=== PATIENT | male | born 1960 | race Caucasian/White ===

== ENCOUNTER 2021-01-08 16:20 | Emergency (ER) | payer MEDICARE, SELFPAY | END 2021-01-08 16:21 | disposition left against medical advice (07) | PROVIDERS: Emergency Provider Emergency Medicine; PCP Internal Medicine | DX: Z53.8 Procedure and treatment not carried out for other reasons (principal) | CPT/HCPCS: 99199 ==

== ENCOUNTER 2021-01-29 13:26 | Outpatient (CLI) | payer MEDICARE, SELFPAY ==
[2021-01-29 15:35] LABS: SARS-CoV-2 RNA PCR Positive (Negative)
== END 2021-01-29 13:27 | disposition home or self-care (01) ==
LOC: CHSLAB 13:29
PROVIDERS: PCP Internal Medicine; Visit Provider Internal Medicine
DX: U07.1 COVID-19 (principal)
CPT/HCPCS: C9803; U0003; U0005

== ENCOUNTER 2022-02-25 09:04 | Outpatient (CLI) | payer MEDICARE, SELFPAY ==
--- NOTE | ~2022-02-25 | US_ITS ---
EXAMINATION: US right upper quadrant DATE: 02/25/2022 09:31 INDICATION: Elevated liver function tests TECHNIQUE: Multiple grayscale and Doppler ultrasound images of the abdomen were obtained. COMPARISON: None FINDINGS: The region of the pancreas is obscured by shadowing bowel gas. Liver has normal echogenicity and cont our, with a smooth surface. No liver lesion identified. No intrahepatic biliary duct dilation suspect ed. Portal venous flow was seen in the hepatopetal, normal direction and has normal Doppler waveform. The gallbladder is normal in appearance. There is no cholelithiasis. The common bile duct measures 3 mm, which is normal. Sonographic Meek sign was reported as negative by the pet adoption counselor. Visualize d portion of the superior vena cava is normal. IMPRESSION: 1. Normal right upper quadrant ultrasound. Reviewed, dictated and finalized at location B.
== END 2022-02-25 09:05 | disposition home or self-care (01) ==
LOC: CHSIMG 09:05
PROVIDERS: PCP Internal Medicine; Visit Provider Internal Medicine
DX: R94.5 Abnormal results of liver function studies (principal)
CPT/HCPCS: 76705

== ENCOUNTER 2024-06-14 15:14 | Outpatient (CLI) | payer MEDICARE, SELFPAY ==
--- NOTE | 2024-06-14 15:26 | ECHO_ITS ---
Patient Info Name: Jules Salinas Age: 64 years : 1960 Gender: Male Ht: 66 in Wt: 185 lbs BSA: 2.00 m2 HR: 71 bpm BP: 143 / 62 mmHg Technical Quality: Good Exam Date: 06/14/2024 3:49 PM Exam Location: Echo Lab Patient Status: Outpatient Admit Date: 06/14/2024 Staff Ordering Physician: Maximino Baez MD Assembler For Puller Over Hand: Jess Santos RDCS Attending Provider: Maximino Baez MD Exam Type: CA echo doppler color flow Summary 1. Left ventricular chamber dimension is normal. 2. Left ventricular systolic function is normal, estimated at 60-65%. 3. The left ventricular diastolic function is grade I diastolic dysfunction. 4. E/e' 9 is minimally elevated. 5. Left atrial chamber dimension is moderately enlarged. 6. There is mild aortic valve sclerosis. 7. There is trace aortic valve regurgitation. 8. There is mild mitral valve regurgitation. 9. There is trace tricuspid valve regurgitation. 10. No pulmonary hypertension, estimated pulmonary arterial systolic pressure is 21 mmHg. 11. There is trace pulmonic regurgitation. Left Ventricle E/e' 9 is minimally elevated. Left ventricular chamber dimension is normal. Left ventricular systolic function is normal, estimated at 60-65%. The left ventricular diastolic function is grade I diastolic dysfunction. Right Ventricle Right ventricular systolic function is normal and with normal TAPSE 2.3 cm. Right ventricular chamber dimension is normal. Left Atria Left atrial chamber dimension is moderately enlarged. Right Atria Right atrial chamber dimension is normal. Aortic Valve The aortic valve is trileaflet. There is mild aortic valve sclerosis. There is no aortic valve stenosis. There is trace aortic valve regurgitation. Pulmonic Valve There is trace pulmonic regurgitation. Mitral Valve There is no mitral valve stenosis. There is mild mitral valve regurgitation. Tricuspid Valve There is trace tricuspid valve regurgitation. No pulmonary hypertension, estimated pulmonary arterial systolic pressure is 21 mmHg. Pericardium/Pleural There is no pericardial effusion. Inferior Vena Cava Normal inferior vena cava with >50% collapse upon inspiration consistent with normal right atrial pressure, 5 mmHg. Aorta The aortic root size at the sinus of Valsalva is normal. Left Ventricular Outflow Tract Name Value Normal LVOT 2D LVOT Diameter 2.2 cm LVOT Doppler LVOT Peak Velocity 95 cm/s LVOT Peak Gradient 4 mmHg LVOT Mean Gradient 2 mmHg LVOT VTI 21 cm LVOT VTI/AV VTI Ratio 0.7 LVOT Stroke Volume 80 ml Pulmonic Valve Name Value Normal PV Doppler PV Peak Velocity 93 cm/s PV Peak Gradient 3 mmHg PV Regurgitation Doppler TN Peak End Diastolic Velocity 118 cm/s Mitral Valve Name Value Normal MV Doppler MV Peak Gradient 4 mmHg MV Mean Gradient 1 mmHg MV Decel Mcclain 265 cm/s2 MV PHT 77 ms MV Area (PHT) 2.8 cm2 4.0-5.0 MV Area (Cont Eq VTI) 2.6 cm2 MV Diastolic Function MV E Peak Velocity 71 cm/s MV A Peak Velocity 98 cm/s MV E/A 0.7 MV Decel Time 267 ms Tricuspid Valve Name Value Normal TV Regurgitation Doppler TR Peak Velocity 197 cm/s TR Peak Gradient 16 mmHg Estimated PAP/RSVP RA Pressure 5 mmHg <=5 PA Systolic Pressure 21 mmHg <36 RV Systolic Pressure 21 mmHg <36 Aortic Valve Name Value Normal AV Doppler AV Peak Velocity 137 cm/s AV Peak Gradient 7 mmHg AV Mean Gradient 3 mmHg AV VTI 28 cm AV Area (Cont Eq VTI) 2.9 cm2 >=3.0 AV Area (Cont Eq Olivier) 2.7 cm2 AV V1/V2 Ratio 0.70 AV Regurgitation 2D LVOT Area 3.9 cm2 AV Regurgitation Doppler AR Decel Time 5,173 ms AR Decel Mcclain 93 cm/s2 AR PHT 1,500 ms Ventricles Name Value Normal LV Dimensions 2D/MM IVS Diastolic Thickness (2D) 0.9 cm 0.6-1.0 LVID Diastole (2D) 5.5 cm 4.2-5.8 LVIW Diastolic Thickness (2D) 0.9 cm 0.6-1.0 LVID Systole (2D) 3.5 cm 2.5-4.0 LVOT Diameter 2.2 cm LV Mass (2D Cubed) 185.34 g 88.00-224.00 LV Mass Index (2D Cubed) 93 g/m2 49-115 Relative Wall Thickness (2D) 0.34 LV Fractional Shortening/Ejection Fraction 2D/MM LV Fractional Shortening (2D) 36 % 25-43 LV EF (2D Teicholz) 64 % 52-72 LV Diastolic Volume (4C MOD) 101 ml LV EF (4C MOD) 52 % LV Diastolic Length (4C) 7.5 cm LV Systolic Length (4C) 6.3 cm LV Stroke Volume (4C MOD) 53 ml Atria Name Value Normal LA Dimensions LA Volume (4C A-L) 85 ml RA Dimensions RA Area (4C) 18.4 cm2 <=18.0 Report Signatures
--- OUTSIDE RECORDS SUMMARY | 2024-06-14 15:42 | XMS_ITS | Encounter Summary ---
Author Name [facility] [place] [facility] [place] Address [address] [place] [address] Support Name Relationship Address Phone [place] SIMMS Next of Kin [address] [place], [place] [phone] LESLY DUNHAM Emergency Contact [address] [place], [place] [id number] Insurance Providers: All historical and current Section Date Range: From patient's date of to the date document was created. This section includes the names of all active insurance providers for the patient. Insurance Provider Type of Coverage Plan Name Start of Policy Coverage End of Policy Coverage Group Number Member ID Insurance Provider's Telephone Number Policy Martinez's Name Patient's Relationship to Policy Martinez MEDICARE (WNR) MEDICARE (M) PART B May 18, 2005 PART B [id number] [phone] CHAN SIMMS PATIENT MEDICARE (WNR) MEDICARE (M) PART A Jun 18, 2001 PART A [id number] [phone] CHAN SIMMS PATIENT Selected Encounter This section includes the information on record at [place] for the Encounter. Date/Time Encounter Type Encounter Description Reason Provider Source September 25, 2023 10:30 AM OFFICE O/P EST MOD 30 MIN PSYCHOGERIATRIC - INDIVIDUAL ICD-10-CM F33.0 Major depressive disorder, recurrent, mild KOCEVARNAYAN IHAmeena Encounter Template Text not used by [place] Assessments - Encounter Diagnoses This section includes the primary and secondary diagnoses documented for the Encounter. Date/Time Primary/Secondary Diagnosis Diagnosis Name Provider Source September 25, 2023 10:56 AM PRIMARY Major depressive disorder, recurrent, mild LAKIA ZALDIVAR [facility] Plan of Treatment: Future Appointments (+ 6 months) and Future Tests (+/- 45 days) The Plan of Treatment section includes future care activities for the patient from all [place] [facility] This section includes future appointments and future orders which are active, pending or scheduled. Future Appointments This section includes appointments that were scheduled to occur 6 months from the date of the Encounter, up to a maximum of 20 appointments. The data comes from all [facility] facilities. Appointment Date/Time Appointment Type Appointme nt Facility Name October 14, 2023 01:30 PM AMBULATORY - SURGERY [facility] Vital Signs: All taken on the encounter date This section contains inpatient and outpatient Vital Signs collected on the date of the Encounter. Date/Time Temperature Pulse Blood Pressure Respiratory Rate SP02 Pain Height Weight Body Mass Index Source September 25, 2023 10:26 AM 97.3 66 164/93 18 98 8 [facility] Social History: Smoking Status (Most current) and Tobacco Use (All prior to encounter date) This section includes the most current, and the historical, smoking and tobacco- related health factors from the [place] facility where the Encounter took place. Current Smoking Status This section includes the most current smoking, or tobacco-related health factor, from the [place] facility where the Encounter took place. Date/Time Current Smoking Status Comment Jerad itrober September 25, 2023 10:30 AM [place]-TOBACCO USER EVERY DAY [facility] Tobacco Use History This section includes a history of the smoking, or tobacco-related health factors, that were collected on or before the date of the Encounter. The data comes from the [place] facility where the Encounter took place. Date/Time Smoking Status/Tobacco Use Comment F acility September 25, 2023 10:30 AM VA-TOBACCO USE ADVICE [facility] September 25, 2023 10:30 AM VA-TOBACCO USE MANAGER EXCHANGE NO [facility] September 25, 2023 10:30 AM VA-TOBACCO USE MED NO [facility] September 25, 2023 10:30 AM VA-TOBACCO USE WI 30 MIN OF WAKEUP [facility] September 25, 2023 10:30 AM VA-TOBACCO USER EVERY DAY [facility] Jul 03, 2022 11:00 AM VA-TOBACCO FORMER USER [facility] Jul 03, 2022 11:00 AM VA-TOBACCO QUIT 5 TO < 15 YRS [facility] Jul 01, 2021 02:00 PM VA-TOBACCO FORMER USER [facility] Jul 01, 2021 02:00 PM VA-TOBACCO QUIT 5 TO < 15 YRS [facility] Oct 20, 2016 12:41 PM QUIT TOBACCO >7 YEARS AGO [facility] October 16, 2015 11:38 AM QUIT TOBACCO >7 YEARS AGO [facility] Jan 12, 2015 02:42 PM QUIT TOBACCO >7 YEARS AGO [facility] Apr 05, 2014 01:12 PM QUIT TOBACCO >7 YEARS AGO [facility] Jul 05, 2013 01:05 PM QUIT TOBACCO >7 YEARS AGO [facility] September 16, 2012 09:17 AM QUIT TOBACCO >7 YEARS AGO [facility] October 09, 2011 09:48 AM QUIT TOBACCO >12 M O & <7 YRS AGO [facility] Dec 23, 2010 10:29 AM QUIT TOBACCO >12 M O & <7 YRS AGO [facility] Feb 27, 2010 09:55 AM CURRENT TOBACCO USER [facility] Encounter Notes: All associated encounter notes This section contains the clinical notes associated to the Encounter. Date/Time Encounter Note(s) Provider Source September 25, 2023 10:49 AM PSYCHIATRY NOTE: LOCAL TITLE: PSYCHIATRY [facility] STANDARD TITLE: PSYCHIATRY NOTE DATE OF NOTE: SEPTEMBER 25, 2023@10:49 ENTRY DATE: SEPTEMBER 25, 2023@10:49:13 AUTHOR: APRIL ZADLIVAR EXP COSIGNER: URGENCY: STATUS: COMPLETED [facility] - MEDICATION MANAGEMENT Name..................CHAN MAURICIO Age...................63 Sex...................MALE SSN...................[id number] Today's ..........SEPTEMBER 25, 2023 Service Connection....Service Connected: Yes (100%) ALLERGIES: Patient has answered NKA OUTPATIENT MEDICATIONS: Active Outpatient Medications (excluding Supplies): Issue Date Status Last Fill Active Outpatient Medications Refills Expiration 1) DORZOLAMIDE 22.3/TIMOLOL6.8MG/ML OPH JAYLEN ACTIVE Issu:07-08-23 Qty: 30 for 90 days Sig: INSTILL 1 Refills: 2 Last:09-28-23 DROP IN BOTH EYES TWICE A DAY FOR Expr:07-08-24 GLAUCOMA 2) DULOXETINE HCL 20MG EC CAP Qty: 180 for ACTIVE Issu:05-27-23 90 days Sig: TAKE TWO CAPSULES BY Refills: 1 Last:09-20-23 MOUTH ONCE A DAY DO NOT ABRUPTLY Expr:05-27-24 DISCONTINUE MEDICATION. 3) HYDROXYZINE HCL 25MG TAB Qty: 90 for 30 ACTIVE Issu:05-27-23 days Sig: TAKE ONE TABLET BY MOUTH Refills: 1 Last:09-03-23 THREE TIMES A DAY NEEDED FOR Expr:05-27-24 ANXIETY *MAY CAUSE DROWSINESS* 4) LAMOTRIGINE 200MG TAB Qty: 180 for 90 ACTIVE Issu:05-27-23 days Sig: TAKE ONE TABLET BY MOUTH Refills: 1 Last:10-03-23 TWICE A DAY FOR MOOD STABILIZATION/ Expr:05-27-24 DEPRESSION 5) ZOLPIDEM TARTRATE 10MG TAB Qty: 30 for ACTIVE Issu:05-27-23 30 days Sig: TAKE ONE TABLET BY MOUTH Refills: 2 Last:09-09-23 AT BEDTIME NEEDED (TAKE IMMEDIATELY Expr:11-27-23 BEFORE BEDTIME DUE TO RAPID ONSET OF ACTION) FOR INSOMNIA Issue Date Status Last Fill Pending Outpatient Medications Refills Expiration 1) DULOXETINE HCL 20MG EC CAP Qty: 180 PENDING Sig: TAKE TWO CAPSULES BY MOUTH ONCE A Refills: 0 DAY DO NOT ABRUPTLY DISCONTINUE MEDICATION. 2) HYDROXYZINE HCL 25MG TAB Qty: 90 Sig: PENDING TAKE ONE TABLET BY MOUTH THREE TIMES A Refills: 0 DAY NEEDED *MAY CAUSE DROWSINESS* 3) LAMOTRIGINE 200MG TAB Qty: 180 Sig: PENDING TAKE ONE TABLET BY MOUTH TWICE A DAY Refills: 0 FOR MOOD STABILIZATION/ DEPRESSION 4) ZOLPIDEM TARTRATE 10MG TAB Qty: 30 PENDING Sig: TAKE ONE TABLET BY MOUTH AT Refills: 0 BEDTIME NEEDED (TAKE IMMEDIATELY BEFORE BEDTIME DUE TO RAPID ONSET OF ACTION) FOR INSOMNIA Start Date Active Non-VA Medications Refills Expiration 1) Non-VA ASCORBIC ACID 500MG TAB Sig: ACTIVE 1000MG BY MOUTH ONCE A DAY 2) Non-VA ASPIRIN 81MG EC TAB SiMG BY ACTIVE MOUTH ONCE A DAY 3) Non-VA GABAPENTIN 300MG CAP SiMG ACTIVE BY MOUTH THREE TIMES A DAY 4) Non-VA HYDROCHLOROTHIAZIDE 25MG TAB ACTIVE SiMG BY MOUTH EVERY MORNING 5) Non-VA MULTIVITAMIN CAP/TAB Si ACTIVE TABLET BY MOUTH ONCE A DAY 6) Non-VA PRAVASTATIN NA 40MG TAB Sig: ACTIVE 20MG BY MOUTH EVERY EVENING 7) Non-VA ZZHYDROCODONE 10/ACETAMINOPHEN ACTIVE 500MG TAB Si TABLET BY MOUTH EVERY 6 HOURS NEEDED 16 Total Medications PROBLEM LIST: 1) Multiple Sclerosis 2) Hyperlipidemia 3) Essential Hypertension 4) Major Depressive Disorder, Single Episode, Severe, without Psychotic Features (I 5) Marijuana Abuse in Remission (ICD-9-CM 305.23) 6) Anxiety Disorder NOS 7) Optic Atrophy 8) Panic Disorder W/Agoraphobia 9) Mood Disorder Due To...[Indicate The General Medical Condition] VITAL SIGNS: Pulse.................66 (09/25/2023 10:26) Temperature...........97.3 F [36.3 C] (09/25/2023 10:26) Blood Pressure........164/93 (09/25/2023 10:26) Pain..................8 (09/25/2023 10:26) Weight................174 lb [78.93 kg] (04/20/2019 12:51) Patient Weight History - Last Four 1. 174.0 lbs. / 78.9 kg. on APR 20, 2019@12:51:37 2. 181.0 lbs. / 82.1 kg. on DEC 31, 2018@14:06:01 3. 187.0 lbs. / 84.8 kg. on SEP 02, 2018@11:23:19 4. 181.0 lbs. / 82.1 kg. on OCTOBER 02, 2017@13:30:22 LAB VALUES: CBC No CBC EO data found CHEM 7 No BASIC METABOLIC PANEL (BMP) EO data found HEPATIC PANEL No data available TRIGLYCERIDES...____ CHOLESTEROL.....No CHOLESTEROL EO data found TSH.............No TSH (2YR) EO data found LITHIUM.........____ VALPROIC ACID...____ DIAGNOSIS BEING TREATED THIS VISIT: MDD ANY COMPLAINTS/PROBLEMS.......Yes HE CAME WITH HIS USUAL HE IS TRYING TO DO BETTER. HE WAS GIVEN MANY SUGGESTIONS. HE DNEIES NIKITA THOUGHTS. NOT AT ACUTE RIKS OF HARM TO SELF OR OTHERS AT THIS TIME. DENIES DALE OR PSYCHOSIS. HE IS TOLERATING HSI MEDS WELL HE WILL TRY TO REDUCE HIS AMBIEN. SIDE EFFECTS EXPLAINED TO HIM. IS SUPPORTIVE PTSD SYMPTOMS: Patient is not currently having active PTSD symptoms SMOKES...No DRINKS...No DRUGS....No MOOD: MOOD NOT TOO BAD . ACTIVITIES: COLLEGE FOOTBALL, SOME CHORES IN upad. CONTACT: Shannon Amado GOAL: STABILISE MOOD ANY MEDICATION SIDE EFFECT....No APPETITE..................... .Good SLEEP........................ .Fair This provider engaged the in shared decision-making/treatment planning. MENTAL STATUS: MOOD/AFFECT.................N ormal MOOD IS NOT TOO BAD RPEORTED. DELUSIONS/HALLUCINATIONS....A bsent DENIES SUICIDAL/AGGRESSIVE.........A bsent DENIES ALERT & ORIENTED X3 WITH GOOD CONCENTRATION........Yes COMMENTS: None CASUALLYD RESSED BEARDED WHTIE MALE WITH CANE AND NEGATIVE PESSIMISTIC PRESENTATION MEDICATION CHANGE.............No WILL STAY ON SAME MEDS. SUPPORTIVE PSYCHOTHERAPY......Yes LIKES FOLLOW UP IN 6 MONTH SOR SOONER IF NEED BE. HAD GOOD SESSION TIME SPENT 25 MINUTES. GAF: Last GAF: 52 on: Jul by: KAYE ACEVEDO Current Gaf: TREATMENT PLAN: Continue with current Treatment Plan Medication Management INSTRUCTIONS GIVEN TO PATIENT/FAMILY: Report medication side effects promptly No alcohol/illicit drug use with medication Needs to be cautious with driving/use of machinery Avoid night-time driving Follow up with Primary Care Provider If symptoms get worse, call clinic or Emergency Room as appropriate /troy/ April Zaldivar M.D. Staff Physician, Psychiatry [facility] Signed: 09/25/2023 10:56 BREANNE ZALDIVAR [facility] September 25, 2023 10:44 AM ACCOUNTING OF DISCLOSURES NOTE: LOCAL TITLE: STATE PRESCRIPTION DRUG MONITORING PROGRAM STANDARD TITLE: ACCOUNTING OF DISCLOSURES NOTE DATE OF NOTE: SEPTEMBER 25, 2023@10:44:46 ENTRY DATE: SEPTEMBER 25, 2023@10:44:46 AUTHOR: APRIL ZALDIVAR EXP COSIGNER: URGENCY: STATUS: COMPLETED This PDMP query was submitted by April Zaldivar MD. The clinical justification for this PDMP query is to review controlled substances prescribed outside of the [place], and any additional information that may become available, as an important component of standard clinical care, and in accordance with [facility] policy. Patient information was shared with the PDMP Appriss Bly. No prescription(s) for controlled substances outside the [place] were found in the last 90 days. /troy/ April Zaldivar M.D. Staff Physician, Psychiatry [facility] Signed: 09/25/2023 10:48 BREANNE ZALDIVAR [facility] September 25, 2023 10:27 AM PSYCHIATRY OUTPATIENT NOTE: LOCAL TITLE: MENTAL HEALTH AGING RESOURCES TEAM [facility] STANDARD TITLE: PSYCHIATRY OUTPATIENT NOTE DATE OF NOTE: SEPTEMBER 25, 2023@10:27 ENTRY DATE: SEPTEMBER 25, 2023@10:27:35 AUTHOR: AURY UMANZOR EXP COSIGNER: URGENCY: STATUS: COMPLETED Alcohol Use Screen (AUDIT-C): Alcohol Screen: SCREEN FOR ALCOHOL (AUDIT-C) An alcohol screening test (AUDIT-C) was negative (score=0). 1. How often did you have a drink containing alcohol in the past year? Consider a drink to be a 12 ounce can or bottle of regular beer, 8 ounces of malt liquor, a 5 ounce glass of table wine, or a 1.5 ounce shot of liquor (like scotch, gin, or vodka). Never 2. How many drinks containing alcohol did you have on a typical day when you were drinking in the past year? Response not required due to responses to other questions. 3. How often did you have six or more drinks on one occasion in the past year? Response not required due to responses to other questions. Homelessness/Food Insecurity Screen: In the past 2 months, have you been living in stable housing that you own, rent, or stay in as part of a household? Yes - Living in stable housing. Are you worried or concerned that in the next 2 months you may NOT have stable housing that you own, rent, or stay in as part of a household? No - Not worried about housing near future The reports the following: Within the past 12 months, you worried whether your food would run out before you got money to buy more. Never true Within the past 12 months, the food you bought just didn't last and you didn't have money to get more. Never true Tobacco Use Screening: The patient uses tobacco every day. The patient uses tobacco within 30 minutes of waking up. The patient has been smoking or using tobacco for thirty years or more. Patient was advised to quit smoking and/or using tobacco. Discussion with patient included: - Quitting smoking or tobacco use is one of the most important things you can do to protect and improve your health and [place] has the resources to support you. - Set a quit date when you are ready to quit. - Get support from your family and friends. - Review any past quit attempts- What helped? What didn't? - On the day you plan to quit, get rid of all cigarettes and tobacco products from your home, car or work. - Using a combination of behavioral counseling or other support strategies and FDA-approved cessation medications is the most effective way to ensure success in quitting. Patient was offered Behavioral Counseling and other support strategies to assist with quitting. Discussion with patient included: - Behavioral counseling or other support strategies greatly increases your chances of successfully quitting smoking or tobacco use by helping you develop a quit plan and providing support and other strategies to make behavioral changes to help you quit. - [place] has a number of behavioral counseling options to help you with quitting, including: * Provide information about the facility smoking or tobacco use treatment options or clinics * [place]'s national quitline, 8-528-USHN-VET, with counseling available Thursday-Thursday The patient was not interested in receiving additional information about how to use the treatment options discussed. Patient was offered FDA-approved cessation medications. Discussion with patient included: - Medications for Nicotine replacement therapy such as the patch, gum or lozenge, and other medications such as varenicline or bupropion, can play an important role in the initial weeks and months after you quit smoking or tobacco use. - Medications help with cravings and withdrawal symptoms and they greatly increase your chances of successfully quitting. The patient was not interested in a prescription for tobacco cessation medications. /troy/ AURY UMANZOR RN Registered Nurse Signed: 09/25/2023 11:51 AURY UMANZOR [facility] September 25, 2023 10:16 AM MENTAL HEALTH ADMINISTRATIVE NOTE: LOCAL TITLE: MHTC ASSIGNMENT/REASSIGNMENT NOTE [facility] STANDARD TITLE: MENTAL HEALTH ADMINISTRATIVE NOTE DATE OF NOTE: SEPTEMBER 25, 2023@10:16 ENTRY DATE: SEPTEMBER 25, 2023@10:16:38 AUTHOR: AURY UMANZOR EXP COSIGNER: URGENCY: STATUS: COMPLETED MHTC Initial Assignment This note documents the initial assignment of the 's Mental Health Senior Microstrategy Developer (MHTC) on September. The [place]'s new Mental Health Senior Microstrategy Developer is: MHTC Name: Shannon Amado RN MHTC Contact information: Office ext [phone] Other contact: The assignment of the MHTC and education on the role of the MHTC in the [place]'s mental health care was discussed with the [place], who verbally concurred with the new assignment. The MHTC's contact information was provided to the [place]. The [place]'s CPRS chart (i.e., PCMM) and MH Treatment Plan have been updated to reflect the new MHTC Assignment. The 's new MHTC, along with the previous MHTC if applicable, are included as additional signers on this note. The undersigned of this note is not the [place]'s new MHTC. The and/or 's Family has had or is scheduled to have contact with the newly assigned MHTC:Shannon Amado RN . New MHC provider is Dr. Zaldivar /troy/ AURY UMANZOR RN Registered Nurse Signed: 09/25/2023 10:21 Receipt Acknowledged By: 09/28/2023 07:25 /troy/ NICOLETTE AMADO Registered Nurse [facility] AURY LAWSON [facility]
--- OUTSIDE RECORDS SUMMARY | 2024-06-14 15:42 | XMS_ITS | Referral Summary ---
Author Organization [facility] Address [address] [place] [address] Care Team Providers Care Transportation Maintenance Supervisor Name Role Phone Maximino Baez MD Primary Care Provider [phone] Encounters Date Type Department Care Team Description 03/25/2024 9:30 AM PROFESSOR OF HISTORY Infusion [facility] [address] [address] Multiple sclerosis (HCC) (Primary Dx) 03/25/2024 1:45 PM PROFESSOR OF HISTORY Office Visit [facility] [address] [place] [address] [address] [address] Balwinder Mae MD Multiple sclerosis (HCC) (Primary Dx); Paraparesis (CMS/HCC) (HCC); Depression, controlled; Neurogenic bladder; Primary insomnia; History of COVID-19 03/22/2024 Orders Only [facility] [address] [facility] [address] [address] Erik Patel PA 03/21/2024 Telephone [facility] [address] [place] [address] [address] [address] Shar Archuleta Approval (GPF Approved 2024 Request ID: [id number]) from Last 3 Months Allergies No known active allergies Medications omega-3 fatty acids-fish oil (FISH OIL) 360-1,200 mg capsule 0 01/30/2011 Active lamoTRIgine (LaMICtal) 200 mg tablet take 1 tablet (200MG) by oral route every day 0 01/30/2011 Active zolpidem (AMBIEN) 10 mg tablet take 1 tablet (10MG) by oral route every day at bedtime 0 01/30/2011 Active aspirin 81 mg tablet take 1 tablet (81MG) by oral route every day 0 01/30/2011 Active HYDROcodone-javed taminophen (NORCO) 10-325 mg per tablet take 1 tablet by oral route every 4 - 6 hours as needed for pain 0 01/30/2011 Active ranitidine (ZANTAC) 300 mg capsule take 1 capsule (300MG) by oral route every day at bedtime 0 01/30/2011 Active gabapentin (NEURONTIN) 600 mg tablet TAKE 1.5 TABLET (900MG) BY ORAL ROUTE 3 TIMES EVERY DAY 135 5 01/30/2011 Active atenolol (TENORMIN) 25 mg tablet 01/07/2017 Active pravastatin (PRAVACHOL) 20 mg tablet 01/07/2017 Active cholecalciferol (VITAMIN D-3) 400 unit capsule Take 1 tablet/capsu le (400 Units total) by mouth daily Active docusate sodium (COLACE) 100 mg capsule Take 1 capsule (100 mg total) by mouth 2 (two) times a day Active famotidine (PEPCID) 20 mg tablet 04/01/2021 Active DULoxetine 40 mg capsule,delayed release(DR/EC) Take 40 mg by mouth nightly Active modafiniL (PROVIGIL) 200 mg tablet TAKE 1 TABLET BY MOUTH TWICE DAILY IN THE MORNING AND AT NOON 180 tablet 3 12/23/2023 Active dalfampridine 10 mg tablet extended release 12 hrIndications:M ultiple sclerosis (HCC) TAKE 1 TABLET BY MOUTH EVERY 12 HOURS 180 tablet 1 04/28/2024 Active Active Problems Problem Noted Date Diagnosed Date History of COVID-19 05/15/2022 Assessment & Plan (03/26/2024 11:04 AM PROFESSOR OF HISTORY): January 2021: Low-grade fever, headache, loss of taste and smell in nasal congestion without cough or significant shortness of breath. No monoclonal antibody treatment. Assessment & Plan (09/15/2023 6:58 AM CDT): January 2021: Low-grade fever, headache, loss of taste and smell in nasal congestion without cough or significant shortness of breath. No monoclonal antibody treatment. Assessment & Plan (05/15/2022 11:22 AM PROFESSOR OF HISTORY): January 2021: Low-grade fever, headache, loss of taste and smell in nasal congestion without cough or significant shortness of breath. No monoclonal antibody treatment. Neurogenic bladder 10/24/2018 Assessment & Plan (03/26/2024 11:04 AM PROFESSOR OF HISTORY): Prefers nonpharmacologic management Using pads Assessment & Plan (09/15/2023 6:57 AM CDT): Prefers nonpharmacologic management Using pads Assessment & Plan (2022 7:24 AM PROFESSOR OF HISTORY): Prefers nonpharmacologic management Using pads Assessment & Plan (11/16/2021 5:03 PM CDT): Prefers nonpharmacologic management Using pads Assessment & Plan (05/15/2021 7:53 AM PROFESSOR OF HISTORY): Prefers nonpharmacologic management Using pads Assessment & Plan (11/02/2020 2:50 PM CDT): Prefers nonpharmacologic management Using pads Assessment & Plan (05/04/2020 7:19 AM PROFESSOR OF HISTORY): Prefers nonpharmacologic management Using pads Assessment & Plan (11/03/2019 7:31 AM CDT): Prefers nonpharmacologic management Using pads Assessment & Plan (04/22/2019 9:01 PM PROFESSOR OF HISTORY): Prefers nonpharmacologic management Using pads Assessment & Plan (10/24/2018 1:50 PM CDT): Prefers nonpharmacologic management Using pads Paraparesis ([facility]) 04/18/2018 Assessment & Plan (03/26/2024 11:03 AM PROFESSOR OF HISTORY): Dalfampridine 10 mg twice a day Use cane regularly through on falls. Declined physical therapy Resume exercise: Yoga Assessment & Plan (09/15/2023 6:56 AM CDT): Dalfampridine 10 mg twice a day Resume exercise: Yoga Assessment & Plan (2022 7:22 AM PROFESSOR OF HISTORY): Dalfampridine 10 mg twice a day Resume exercise: Yoga Assessment & Plan (11/16/2021 5:01 PM CDT): Dalfampridine 10 mg twice a day Resume exercise: Yoga Assessment & Plan (05/15/2021 7:46 AM PROFESSOR OF HISTORY): Dalfampridine 10 mg twice a day Resume exercise: Yoga Assessment & Plan (11/02/2020 2:50 PM CDT): Ampyra 10 mg twice a day Resume exercise: Yoga Assessment & Plan (05/04/2020 7:18 AM PROFESSOR OF HISTORY): Ampyra 10 mg twice a day Resume exercise: Yoga Assessment & Plan (11/03/2019 7:29 AM CDT): Ampyra 10 mg twice a day Resume exercise: Yoga Assessment & Plan (04/22/2019 9:00 PM PROFESSOR OF HISTORY): Ampyra Baclofen Resume exercise: Yoga Assessment & Plan (10/24/2018 1:38 PM CDT): Ampyra Baclofen Exercise: Yoga Assessment & Plan (04/18/2018 8:47 AM PROFESSOR OF HISTORY): Baclofen Exercise: Yoga Depression, controlled 08/03/2017 Assessment & Plan (03/26/2024 11:04 AM PROFESSOR OF HISTORY): Duloxetine 40 mg daily Lamictal 200 mg daily Hydroxyzine Psychiatry follow-up at [facility] Assessment & Plan (09/15/2023 6:56 AM CDT): Duloxetine 40 mg daily Lamictal 200 mg daily Hydroxyzine Psychiatry follow-up at [facility] Assessment & Plan (2022 7:23 AM PROFESSOR OF HISTORY): Venlafaxine XR 150 mg daily Citalopram 20 mg daily Lamictal 200 mg daily Psychiatry follow-up at [facility] Assessment & Plan (11/16/2021 5:03 PM CDT): Venlafaxine XR 150 mg daily Citalopram 20 mg daily Lamictal 200 mg daily Psychiatry follow-up at [facility] Assessment & Plan (05/15/2021 7:47 AM PROFESSOR OF HISTORY): Venlafaxine XR 150 mg daily Citalopram 20 mg daily Lamictal [address] Oro at the [facility] retiring; starting with new psychiatrist. Assessment & Plan (11/02/2020 2:50 PM CDT): Venlafaxine XR 150 mg daily Citalopram 20 mg daily Lamictal 200 mg daily Psychiatry follow-up with Dr. Oro at the [facility] Assessment & Plan (05/04/2020 7:19 AM PROFESSOR OF HISTORY): Venlafaxine XR 150 mg daily Citalopram 20 mg daily Lamictal 200 mg daily Psychiatry follow-up with Dr. Oro at the [facility] Assessment & Plan (11/03/2019 7:30 AM CDT): Effexor XR 150 mg daily Citalopram 20 mg daily Lamictal 200 mg daily Psychiatry follow-up Assessment & Plan (04/22/2019 9:01 PM PROFESSOR OF HISTORY): Effexor XR 150 mg daily Citalopram 20 mg daily Lamictal 200 mg daily Alprazolam Psychiatry follow-up Assessment & Plan (08/03/2017 11:04 AM CDT): Psychological condition is unchanged. Continue current treatment regimen. Psychological condition will be reassessed with psychiatry at [place] as recommended. Arthralgia of multiple joints 01/12/2017 Assessment & Plan (04/18/2018 8:52 AM PROFESSOR OF HISTORY): Follow-up with PCP. MARIA R, RF and ESR normal Assessment & Plan (01/12/2017 9:07 PM CDT): Will check for rheumatologic cause F/u with PCP Primary insomnia 01/12/2017 Assessment & Plan (03/26/2024 11:04 AM PROFESSOR OF HISTORY): Ambien 10 mg at night as needed Assessment & Plan (09/15/2023 6:58 AM CDT): Ambien 10 mg qhs prn Assessment & Plan (2022 7:24 AM PROFESSOR OF HISTORY): Ambien 10 mg qhs prn Assessment & Plan (11/16/2021 5:03 PM CDT): Ambien 10 mg qhs prn Assessment & Plan (05/15/2021 7:54 AM PROFESSOR OF HISTORY): Ambien 10 mg qhs prn Assessment & Plan (11/02/2020 2:51 PM CDT): Ambien 10 mg qhs prn Assessment & Plan (05/04/2020 7:19 AM PROFESSOR OF HISTORY): Ambien 10 mg qhs prn Assessment & Plan (11/03/2019 7:31 AM CDT): Ambien 10 mg qhs prn Assessment & Plan (04/22/2019 9:02 PM PROFESSOR OF HISTORY): Ambien 10 mg qhs prn Assessment & Plan (10/24/2018 1:52 PM CDT): Ambien 10 mg qhs prn Assessment & Plan (04/18/2018 8:51 AM PROFESSOR OF HISTORY): Ambien 10 mg qhs prn Assessment & Plan (01/12/2017 9:30 PM CDT): Ambien qhs prn Multiple sclerosis 10/01/2013 Overview (08/20/2016): Multiple sclerosis Assessment & Plan (03/26/2024 11:03 AM PROFESSOR OF HISTORY): First attack: Optic neuritis at age 20 Next Ocrevus infusion September 22, 2024. The benefits and risks of Ocrevus were discussed with patient including serious infusion reactions, serious infections including PML/respiratory/herpetic infections and potential malignancy. Increased risk of serious complications including pneumonia and possibly if he develops COVID-19 reinfection discussed. He received a 3rd Pfizer COVID-19 vaccine January 16, 2021. Booster vaccination recommended. Patient understands that Ocrevus may reduce the efficacy of a COVID-19 vaccination and he potentially may not be protected from COVID-19 infection. Paxlovid advised if he develops recurrent COVID-19. He developed worsening disability on glatiramer acetate 40 mg TIW. He developed complications on other DMTs including JCV ab positive on Tysabri, lymphocytopenia on Tecfidera, macular edema on Gilenya and neutralizing antibodies on interferon. Provigil 200 mg in the morning and 100 mg at noon for fatigue. 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 The benefits and risks of Ocrevus were discussed with patient including serious infusion reactions, serious infections including PML/respiratory/herpetic infections and potential malignancy. Increased risk of serious complications including pneumonia and possibly if he develops COVID-19 infection discussed. He received a 3rd Pfizer COVID-19 vaccine January 16, 2021. Booster vaccination recommended. Patient understands that Ocrevus may reduce the efficacy of a COVID-19 vaccination and he potentially may not be protected from COVID-19 infection. Paxlovid advised if he develops recurrent COVID-19. He developed worsening disability on glatiramer acetate 40 mg TIW. He developed complications on other DMTs including JCV ab positive on Tysabri, lymphocytopenia on Tecfidera, macular edema on Gilenya and neutralizing antibodies on interferon. Provigil 200 mg in the morning and 100 mg at noon for fatigue. Gabapentin 600 mg 3 times a day Try MiraLax for constipation. Recommended evaluation with director of financial planning Dr. Balwinder Champagne. 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 The benefits and risks of Ocrevus were discussed with patient including serious infusion reactions, serious infections including PML/respiratory/herpetic infections and potential malignancy. Increased risk of serious complications including pneumonia and possibly if develops COVID-19 infection discussed. He received a 3rd Pfizer COVID-19 vaccine January 16, 2021. Booster vaccination recommended. Patient understands that Ocrevus may reduce the efficacy of a COVID-19 vaccination and he potentially may not be protected from COVID-19 infection. Paxlovid advised if he develops recurrent COVID-19. Katherine discussed, but will defer due to cardiovascular risks. He developed worsening disability on glatiramer acetate 40 mg TIW. Patient developed complications on other DMTs including JCV ab positive on Tysabri, lymphocytopenia on Tecfidera, macular edema on Gilenya and neutralizing antibodies on interferon. Provigil 200 mg in the morning helping fatigue Gabapentin 600 mg 3 times a day Assessment & Plan (11/16/2021 5:01 PM CDT): First attack: Optic neuritis at age 20 Next Ocrevus infusion February 19, 2022.The benefits and risks of Ocrevus were discussed with patient including serious infusion reactions, serious infections including PML/respiratory/herpetic infections and potential malignancy. Increased risk of serious complications including pneumonia and possibly if develops COVID-19 infection discussed. He received a 3rd Pfizer COVID-19 vaccine January 16, 2021. Another vaccination recommended. Patient understands that Ocrevus may reduce the efficacy of a COVID-19 vaccination and he potentially may not be protected from COVID-19 infection. Paxlovid advised if he develops COVID-19. Evusheld discussed, but will defer due to cardiovascular risks. He developed worsening disability on glatiramer acetate 40 mg TIW. Patient developed complications on other DMTs including JCV ab positive on Tysabri, lymphocytopenia on Tecfidera, macular edema on Gilenya and neutralizing antibodies on interferon. Provigil 200 mg in the morning helping fatigue Gabapentin 600 mg 3 times a day Assessment & Plan (05/15/2021 7:48 AM PROFESSOR OF HISTORY): First attack: Optic neuritis at age 20 Next Ocrevus infusion August 21, 2021.The benefits and risks of Ocrevus were discussed with patient including serious infusion reactions, serious infections including PML/respiratory/herpetic infections and potential malignancy. Increased risk of serious complications if develops coronavirus infection (COVID-19) discussed including pneumonia and possible reviewed. He received a 3rd Pfizer COVID-19 vaccine January 16, 2021. Patient understands that Ocrevus may reduce the efficacy of a COVID-19 vaccination and he potentially may not be protected from COVID-19 infection. I advised him to wearing a mask in public and around unvaccinated people. He developed worsening disability on glatiramer acetate 40 mg TIW. Patient developed complications on other DMTs including JCV ab positive on Tysabri, lymphocytopenia on Tecfidera, macular edema on Gilenya and neutralizing antibodies on interferon. Provigil 200 mg in the morning helping fatigue Gabapentin 600 mg 3 times a day MRI brain and cervical spine April 2021 Assessment & Plan (11/02/2020 2:49 PM CDT): Next Ocrevus infusion January 17, 2021.The benefits and risks of Ocrevus were discussed with patient including serious infusion reactions, serious infections including PML/respiratory/herpetic infections and potential malignancy. Increased risk of serious complications if develops coronavirus infection (COVID-19) discussed including pneumonia and possible reviewed. He received a 2nd Pfizer COVID 19 vaccine September 2020. Patient and his understand that Ocrevus may reduce the efficacy of a COVID-19 vaccination and he potentially may not be protected from COVID-19 infection. I advised him to wearing a mask in public and around unvaccinated people. He developed worsening disability on glatiramer acetate 40 mg TIW. Patient developed complications on other DMTs including JCV ab positive on Tysabri, lymphocytopenia on Tecfidera, macular edema on Gilenya and neutralizing antibodies on interferon. Provigil 200 mg in the morning helping fatigue Gabapentin 600 mg 3 times a day MRI brain and cervical spine April 2021. Assessment & Plan (05/04/2020 7:17 AM PROFESSOR OF HISTORY): Next Ocrevus infusion July 18, 2020.The benefits and risks of Ocrevus were discussed with patient including serious infusion reactions, serious infections including PML/respiratory/herpetic infections and potential malignancy. Increased risk of serious complications if develops coronavirus infection (COVID-19) discussed including pneumonia and possible reviewed. Patient wants to continue Ocrevus. He is primarily staying at home and maintaining social distancing. Patient understands the Ocrevus may reduce the efficacy of a COVID-19 vaccination and he potentially may not be protected from COVID-19 infection. He developed worsening disability on glatiramer acetate 40 mg TIW. Patient developed complications on other DMTs including JCV ab positive on Tysabri, lymphocytopenia on Tecfidera, macular edema on Gilenya and neutralizing antibodies on interferon. Provigil 200 mg in the morning helping fatigue Gabapentin 600 mg 3 times a day MRI brain and cervical spine April 2021. Assessment & Plan (11/03/2019 7:29 AM CDT): Next Ocrevus infusion January 18, 2020.The benefits and risks of Ocrevus were discussed with patient and his including serious infusion reactions, serious infections including PML/respiratory/herpetic infections and potential malignancy. Increased risk of serious complications if develops coronavirus infection (COVID-19) discussed including pneumonia and possible reviewed. Patient wants to continue Ocrevus. He is primarily staying at home and maintaining social distancing. He developed worsening disability on glatiramer acetate 40 mg TIW. Patient developed complications on other DMTs including JCV ab positive on Tysabri, lymphocytopenia on Tecfidera, macular edema on Gilenya and neutralizing antibodies on interferon. Provigil 200 mg morning and noon Gabapentin 600 mg 3 times a day Assessment & Plan (04/22/2019 9:00 PM PROFESSOR OF HISTORY): Worsening disability on glatiramer acetate 40 mg TIW. Patient developed complications on other DMTs including JCV ab positive on Tysabri, lymphocytopenia on Tecfidera, macular edema on Gilenya and neutralizing antibodies on interferon. The benefits and risks of Ocrevus were discussed with patient and his including serious infusion reactions, serious infections including PML/respiratory/herpetic infections and potential malignancy. Patient would like to proceed with Ocrevus initiation if his lymphocyte counts have recovered. Provigil 200 mg morning and noon Gabapentin 600 mg 3 times a day Assessment & Plan (10/24/2018 1:49 PM CDT): On Copaxone 40 mg TIW. Since breakthrough disease twice on Copaxone, alternative treatment options discussed. Patient developed complications on other DMTs including JCV ab positive on Tysabri, lymphocytopenia on Tecfidera, macular edema on Gilenya and neutralizing antibodies on interfere. The benefits and risks of Ocrevus were discussed with patient and his including serious infusion reactions, serious infections including PML/respiratory/herpetic infections and potential malignancy. Would like to proceed with Ocrevus initiation. MRI brain and cervical spine Mar 2019 Provigil, gabapentin Assessment & Plan (04/18/2018 8:54 AM PROFESSOR OF HISTORY): On Copaxone 40 mg TIW. Since breakthrough disease twice on Copaxone, I recommended switch to Ocrevus again if repeat ALC improved (515 on 02/06/17). The benefits and risks of Ocrevus discussed with patient including serious infusion reactions, serious infections including PML/respiratory/herpetic infections and potential malignancy. He will consider again and discuss with . George, Provigil, gabapentin Assessment & Plan (08/03/2017 11:04 AM CDT): Copaxone 40mg TIW. Let me know if any issues with the generic Ampyra, Provigil and gabapentin. PT evaluation for walking and strengthening recommended Assessment & Plan (01/12/2017 9:33 PM CDT): On Copaxone 40 mg TIW. Since breakthrough disease twice on Copaxone, I recommended switch to Ocrevus. The benefits and risks of Ocrevus discussed with pt/ including serious infusion reactions, serious infections including PML/fungal infections and potential malignancy. He would like to review information and let me know if he wants to switch. Ampyra, Provigil, gabapentin and baclofen Con't Yoga/walking. 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 Vitamin D deficiency 01/12/2017 019 Assessment & Plan (04/18/2018 8:51 AM PROFESSOR OF HISTORY): Vit D3 4000 IU daily Assessment & Plan (01/12/2017 9:30 PM CDT): Vit D3 4000 IU daily Immunizations Name Administration Dates Next Due Influenza, Quadrivalent, Rec ombinant, Egg Free, Preservative Free, Intramuscular 03/08/2020 Influenza, Quadrivalent, Spl it, Preservative Free, Intramuscular 01/29/2023,01/29/2022,03/05/2021,03/04,02/05/2018,02/27/2017,02/08/2015 Influenza, Trivalent, IM (MDV) 03/29/2012 Influenza, Trivalent, Preser vative Free, Intramuscular 02/12/2024 Influenza, Unspecified 04/04/2019,2014,02/28/2014,04/04,03/31/2012,02/12/2011,04/02/2010 ,04/17/2009 Pneumococcal Conjugate PCV 13 05/09/2015 Pneumococcal Conjugate Pcv20 08/12/2023 Td, adsorbed 01/08/2021 Tdap 05/18/2007 Social History Tobacco Use Types Packs/Day Years Used Date Smoking Tobacco: Former Vaping Smokeless Tobacco: Never Tobacco Cessation:Counseling Given: Not Answered Alcohol Use Standard Drinks/Week Comments Yes 0 (1 standard drink = 0.6 oz pur e alcohol) Sex and Gender Information Value Date Recorded Sex Assigned at Not on file Legal Sex Male 3:09 PM PROFESSOR OF HISTORY Gender Identity Not on file Sexual Orientation Not on file Last Filed Vital Signs Vital Sign Reading Time Taken Comments Blood Pressure 152/91 03/25/2024 1:23 PM PROFESSOR OF HISTORY Pulse 62 03/25/2024 1:23 PM PROFESSOR OF HISTORY Temperature 36.2 ??C (97.2 ??F) 03/25/2024 1:23 PM CS T Respiratory Rate 16 03/25/2024 12:45 PM PROFESSOR OF HISTORY Oxygen Saturation 100% 03/25/2024 1:23 PM PROFESSOR OF HISTORY Inhaled Oxygen Concentration - - Weight 81.6 kg (180 lb) 03/25/2024 1:23 PM PROFESSOR OF HISTORY Height 172.7 cm (5' 8 ) 03/25/2024 1:23 PM PROFESSOR OF HISTORY Body Mass Index 27.37 03/25/2024 1:23 PM PROFESSOR OF HISTORY Plan of Treatment Not on file Procedures Procedure Name Priority Date/Time Associated Diagnosis Comments IMMUNOGLOBULINS A/E/G/M, SERUM Routine 03/18/2024 10:32 AM CDT Multiple sclerosis (HCC) High risk medication use COMPREHENSIVE METABOLIC PANEL Routine 03/18/2024 10:32 AM CDT Multiple sclerosis (HCC) High risk medication use CBC WITH AUTO DIFFERENTIAL Routine 03/18/2024 10:32 AM CDT Multiple sclerosis (HCC) High risk medication use PSA SCREEN Routine 03/04/2023 11:37 AM CDT HEPATITIS PANEL, ACUTE Routine 9:40 AM CDT from Last 3 Months or Most Recently Relevant to Health Maintenance Results * (ABNORMAL) Immunoglobulins A/E/G/M, Serum (03/18/2024 10:32 AM CDT) Immunoglobulin A 109 70 - 320 mg/dL [facility] Immunoglobulin E 8 <PG=978 kU/L [facility] Immunoglobulin G 615 600 - 1,540 mg/dL [facility] Immunoglobulin M 16(L) 50 - 300 mg/dL [facility] Comment: Verified by repeat analysis. Serum 03/18/2024 10:3 2 AM CDT 03/18/2024 10:33 AM CDT us Balwinder Mae MD LAB BLOOD ORDERABLES Final Re sult [facility] [address] [place] [address] * (ABNORMAL) CBC with auto differential (03/18/2024 10:32 AM CDT) WBC 5.1 3.8 - 10.8 Thousand/u L [facility] RBC, POC 4.81 4.20 - 5.80 Million/uL [facility] Hgb 14.5 13.2 - 17.1 g/dL [facility] Hct 45.2 38.5 - 50.0 % [facility] MCV 94.0 80.0 - 100.0 fL [facility] MCH 30.1 27.0 - 33.0 pg [facility] MCHC 32.1 32.0 - 36.0 g/dL [facility] Comment: For adults, a slight decrease in the calculated MCHC value (in the range of 30 to 32 g/dL) is most likely not clinically significant; however, it should be interpreted with caution in correlation with other red cell parameters and the patient's clinical condition. Rdw 12.4 11.0 - 15.0 % [facility] Platelets 217 140 - 400 [place]ousand/u L [facility] MPV 11.9 7.5 - 12.5 fL [facility] Neutrophils, abs 3,499 1,500 - 7,800 cells/uL [facility] Lymphocytes, abs 796(L) 850 - 3,900 cells/uL [facility] Monocyte abs 607 200 - 950 cells/uL [facility] Eosinophils, abs 168 15 - 500 cells/uL [facility] Basophils, abs 31 0 - 200 cells/uL [facility] Neutrophils 68.6 % [facility] Lymphocyte pct 15.6 % [facility] Monocytes 11.9 % [facility] Eosinophils 3.3 % [facility] Basophils 0.6 % [facility] Blood 03/18/2024 10:3 2 AM CDT 03/18/2024 10:33 AM CDT us Balwinder Mae MD LAB BLOOD ORDERABLES Final Re sult [facility] [address] [facility] [place] [address] * (ABNORMAL) Comprehensive metabolic panel (03/18/2024 10:32 AM CDT) Pathologist [facility] Glucose 92 65 - 99 mg/dL [facility] Comment: ? Fasting reference interval BUN 16 7 - 25 mg/dL [facility] Creatinine 1.02 0.70 - 1.35 mg/dL [facility] eGFR 82 > OR = 60 mL/min/1.7 3m2 [facility] BUN/creat ratio SEE NOTE: 6 - 22 (calc) [facility] Comment: ?? Not Reported: BUN and Creatinine are within ?? reference range. ? Sodium 142 135 - 146 mmol/L [facility] Potassium, pl 4.7 3.5 - 5.3 mmol/L [facility] Chloride 106 98 - 110 mmol/L [facility] CO2 30 20 - 32 mmol/L [facility] Calcium 9.6 8.6 - 10.3 mg/dL [facility] Protein, sr 6.2 6.1 - 8.1 g/dL [facility] Albumin 4.4 3.6 - 5.1 g/dL [facility] GLOBULIN 1.8(L) 1.9 - 3.7 g/dL (calc) [facility] Alb/glob ratio 2.4 1.0 - 2.5 (calc) [facility] Bilirubin, total 0.6 0.2 - 1.2 mg/dL [facility] Alk phos 129 35 - 144 U/L [facility] AST 26 10 - 35 U/L [facility] ALT (SGPT) 32 9 - 46 U/L [facility] Blood 03/18/2024 10:3 2 AM CDT 03/18/2024 10:33 AM CDT us Balwinder Mae MD LAB BLOOD ORDERABLES Final Re sult [facility] [address] [address] [place] [address] * PSA screen (03/04/2023 11:37 AM CDT) PSA 1.26 < OR = 4.00 ng/mL [facility] Comment: The total PSA value from this assay system is standardized against the WHO standard. The test result will be approximately 20% lower when compared to the equimolar-standardized total PSA (Lulu Quitman). Comparison of serial PSA results should be interpreted with this fact in mind. This test was performed using the Siemens chemiluminescent method. Values obtained from different assay methods cannot be used interchangeably. PSA levels, regardless of value, should not be interpreted as absolute evidence of the presence or absence of disease. 03/04/2023 11:3 7 AM CDT 03/04/2023 11:40 AM CDT Maximino Baez MD LAB BLOOD ORDERABLES Final Resu lt [facility] [address] [address] * Hepatitis panel, acute (10/26/2018 9:40 AM CDT) Hep A IgM NON-REACTIVE NON-REACT [facility] [place] HepBsAg NON-REACTIVE NON-REACT [facility] [place] HBV Surface ag, confirm CANCELED [facility] [place] Comment:Result canceled by surya rushing ancillary. Hep B core IgM NON-REACTIVE NON-REACT [facility] [place] Hep C Ab NON-REACTIVE NON-REACT [facility] [place] SIGNAL TO CUT-OFF 0.00 <1.00 [facility] [place] Comment: HCV antibody was non-reactive. There is no laboratory evidence of HCV infection. In most cases, no further action is required. However, if recent HCV exposure is suspected, a test for HCV RNA (test code 55739) is suggested. For additional information please refer to http://education.[employer]/faq/OEU16e8 (This link is being provided for informational/ educational purposes only.) 10/26/2018 9:40 AM CDT 10/26/2018 9:56 AM CDT Narrative Resulting Agency Comment Performing Organization Information: ?Site ID: [place] ?Name: [facility] ?Address: [address] [address] [address] ?Director: Uziel Pace D.O., MPH us Balwinder Mae MD LAB MICROBIOLOGY - GENERAL OR DERABLES Final Result [facility] [place] [facility] from Last 3 Months or Most Recently Relevant to Health Maintenance Insurance MEDICARE MEDICARE MEDICARE Care Teams Transportation Maintenance Supervisor Relationship Specialty Start Date End Date Maximino Baez MD PCP - General 08/15/16
--- OUTSIDE RECORDS SUMMARY | 2024-06-14 15:42 | XMS_ITS | Continuity of Care Document ---
Author Name [facility] Organization [facility] Care Team Providers Care Gi Technician Name Role Phone [facility] Unavailable Unavailable Problems Combined list of problems from Department of Defense and [facility] Affairs facilities. It does not include entries that were removed or entered in error. Problem Status Onset Date Problem Type Date of Resolution Comments Source Anxiety Disorder NOS Active Condition [facility] Essential Hypertension Active Condition [facility] Hyperlipidemia Active Condition [facility] Major Depressive Disorder, Single Episode, Severe, without Psychotic Features (I Active Condition [facility] Marijuana Abuse in Remission (ICD-9-CM 305.23) Active Condition [facility] Mood Disorder Due To...[Indicate The General Medical Condition] Active Condition [facility] Multiple Sclerosis Active Condition [facility] Optic Atrophy Active Condition [facility] Panic Disorder W/Agoraphobia Active Condition [facility] Diagnosis: ICD-10-CM H54.52A1 Low vision left eye category 1, normal vision right eye Active Diagnosis [facility] Diagnosis: ICD-10-CM H40.2231 Chronic angle-closure glaucoma, bilateral, mild stage Active Diagnosis [facility] Diagnosis: ICD-10-CM F33.0 Major depressive disorder, recurrent, mild Active Diagnosis [facility] Diagnosis: ICD-10-CM H52.13 Myopia, bilateral Active Diagnosis [facility] Diagnosis: ICD-10-CM G35 Multiple sclerosis Active Diagnosis [facility] Diagnosis: ICD-10-CM H40.053 Ocular hypertension, bilateral Active Diagnosis [facility] Diagnosis: ICD-10-CM F33.1 Major depressive disorder, recurrent, moderate Active Diagnosis [facility] Medications Combined list of outpatient medications from Department of Defense and Veterans Affairs facilities.Medications provided include 1) outpatient medications from the last 15 months, and 2) patient-reported medications. Medication Details Route Status Patient Instructions Prescription Expires Prescription Number Last Dispense Date Ordering Provider Order Date Order Qty Source ASCORBIC ACID 500MG TAB TAKE TWO TABLETS BY MOUTH ONCE A DAY ORAL ACTIVE YAMILE,ROGELIO A D 2009 [facility] ASPIRIN 81MG TAB,EC TAKE ONE TABLET BY MOUTH ONCE A DAY ORAL ACTIVE YAMILE,ROGELIO A D 2009 [facility] DORZOLAMIDE HCL 22.3MG/SIMRAN LOL MALEATE 6.8MG/ML SOLN,OPH INSTILL 1 DROP IN BOTH EYES TWICE A DAY FOR GLAUCOMA OPHTHA LMIC SUSPEND ED 10/14/2024 [id number] 5 FER GARCIA 2023 30 [facility] DORZOLAMIDE HCL 22.3MG/SIMRAN LOL MALEATE 6.8MG/ML SOLN,OPH INSTILL 1 DROP IN BOTH EYES TWICE A DAY FOR GLAUCOMA OPHTHA LMIC DISCONT INUED (EDIT) 07/08/2024 [id number] 4 FER GARCIA 2023 30 [facility] DULOXETINE HCL 20MG CAP,EC TAKE TWO CAPSULES BY MOUTH ONCE A DAY DO NOT ABRUPTLY DISCONTI NUE MEDICATI ON. ORAL SUSPEND ED 04/02/2025 [id number] 5 MCKENNANDA AUGUSTINA,LACHMA N 2023 180 [facility] DULOXETINE HCL 20MG CAP,EC TAKE TWO CAPSULES BY MOUTH ONCE A DAY DO NOT ABRUPTLY DISCONTI NUE MEDICATI ON. ORAL DISCONT INUED 09/25/2024 [id number] 4 ABICHANDA NI,LACHMA N 2023 180 [facility] DULOXETINE HCL 20MG CAP,EC TAKE TWO CAPSULES BY MOUTH ONCE A DAY DO NOT ABRUPTLY DISCONTI NUE MEDICATI ON. ORAL DISCONT INUED 05/27/2024 [id number] BREANNE WHITE N 2023 180 [facility] DULOXETINE HCL 20MG CAP,EC TAKE TWO CAPSULES BY MOUTH ONCE A DAY FOR DEPRESSI ON DO NOT ABRUPTLY DISCONTI NUE MEDICATI ON. ORAL DISCONT INUED 06/29/2023 [id number] 3 CONCHA MURRAYBI NU 2022 180 [facility] FLUOROMETHO LONE 0.1% SUSP,OPH INSTILL 1 DROP IN RIGHT EYE ONCE A DAY - APPLY TO INSIDE OF LOWER LID. CLOSE EYE FOR 1-2 MINUTES AND ROLL EYEBALL IN ALL DIRECTIO NS. OPHTHA LMIC ACTIVE 05/05/2025 [id number] 5 FER GARCIA 2023 5 [facility] GABAPENTIN 300MG CAP TAKE 1 CAPSULE BY MOUTH THREE TIMES A DAY ORAL ACTIVE YAMILE,ROGELIO A D 2009 [facility] HYDROCHLORO THIAZIDE 25MG TAB TAKE ONE TABLET BY MOUTH EVERY MORNING ORAL ACTIVE YAMILE,ROGELIO A D 2009 [facility] HYDROXYZINE HCL 25MG TAB TAKE ONE TABLET BY MOUTH THREE TIMES A DAY NEEDED *MAY CAUSE DROWSINE SS* ORAL ACTIVE 04/02/2025 [id number] JENNIFER WHITEA N 2023 270 [facility] HYDROXYZINE HCL 25MG TAB TAKE ONE TABLET BY MOUTH THREE TIMES A DAY NEEDED FOR ANXIETY *MAY CAUSE DROWSINE SS* ORAL DISCONT INUED 09/25/2024 [id number] 4 JENNIFER WHITEA N 2023 270 [facility] HYDROXYZINE HCL 25MG TAB TAKE ONE TABLET BY MOUTH THREE TIMES A DAY NEEDED FOR ANXIETY *MAY CAUSE DROWSINE SS* ORAL DISCONT INUED 09/25/2024 [id number] 4 ABICHANDA NI,LACHMA N 2023 90 [facility] HYDROXYZINE HCL 25MG TAB TAKE ONE TABLET BY MOUTH THREE TIMES A DAY NEEDED FOR ANXIETY *MAY CAUSE DROWSINE SS* ORAL DISCONT INUED 05/27/2024 [id number] 4 ABICHANDA NI,LACHMA N 2023 90 [facility] HYDROXYZINE HCL 25MG TAB TAKE ONE TABLET BY MOUTH THREE TIMES A DAY NEEDED FOR ANXIETY *MAY CAUSE DROWSINE SS* ORAL DISCONT INUED 01/01/2024 [id number] 3 ABICHANDA NI,LACHMA N 2022 90 [facility] LAMOTRIGINE 200MG TAB TAKE ONE TABLET BY MOUTH TWICE A DAY FOR MOOD STABILIZ ATION/ DEPRESSI ON ORAL SUSPEND ED 04/02/2025 [id number] 5 ABICHANDA NI,LACHMA N 2023 180 [facility] LAMOTRIGINE 200MG TAB TAKE ONE TABLET BY MOUTH TWICE A DAY FOR MOOD STABILIZ ATION/ DEPRESSI ON ORAL DISCONT INUED 09/25/2024 [id number] 4 ABICHANDA NI,LACHMA N 2023 180 [facility] LAMOTRIGINE 200MG TAB TAKE ONE TABLET BY MOUTH TWICE A DAY FOR MOOD STABILIZ ATION/ DEPRESSI ON ORAL DISCONT INUED 05/27/2024 [id number] 4 ABICHANDA NI,LACHMA N 2023 180 [facility] LAMOTRIGINE 200MG TAB TAKE ONE TABLET BY MOUTH TWICE A DAY FOR MOOD STABILIZ ATION/ DEPRESSI ON ORAL DISCONT INUED 01/01/2024 [id number] 3 ABICHANDA NI,LACHMA N 2022 180 [facility] MULTIVITAMI NS CAP/TAB TAKE ONE TABLET BY MOUTH ONCE A DAY ORAL ACTIVE YAMILE,ROGELIO A D 2009 [facility] PRAVASTATIN NA 40MG TAB TAKE ONE-HALF TABLET BY MOUTH EVERY EVENING ORAL ACTIVE YAMILE,ROGELIO A D 2009 [facility] ZOLPIDEM TARTRATE 10MG TAB TAKE ONE TABLET BY MOUTH AT BEDTIME NEEDED (TAKE IMMEDIAT WIL BEFORE BEDTIME DUE TO RAPID ONSET OF ACTION) FOR INSOMNIA ORAL ACTIVE 10/02/2024 [id number] 5 MCKENNANDAleah JACKMAN LACHMA N 2023 30 [facility] ZOLPIDEM TARTRATE 10MG TAB TAKE ONE TABLET BY MOUTH AT BEDTIME NEEDED (TAKE IMMEDIAT WIL BEFORE BEDTIME DUE TO RAPID ONSET OF ACTION) FOR INSOMNIA ORAL DISCONT INUED 11/27/2023 [id number] 4 ABIFRANSISCONDAleah JACKMANLACHMA N 2023 30 [facility] ZOLPIDEM TARTRATE 10MG TAB TAKE ONE TABLET BY MOUTH AT BEDTIME NEEDED (TAKE IMMEDIAT WIL BEFORE BEDTIME DUE TO RAPID ONSET OF ACTION) FOR INSOMNIA ORAL DISCONT INUED 07/03/2023 [id number] 3 ABICHANDAleah JACKMANLACHMA N 2022 30 [facility] ZOLPIDEM TARTRATE 10MG TAB TAKE ONE TABLET BY MOUTH AT BEDTIME NEEDED (TAKE IMMEDIAT WIL BEFORE BEDTIME DUE TO RAPID ONSET OF ACTION) FOR INSOMNIA ORAL 03/27/2024 [id number] 4 ABIFRANSISCONDAleah JACKMANLACHMA N 2023 30 [facility] ZZHYDROCODO NE 10/ACETAMIN OPHEN 500MG TAB TAKE ONE TABLET BY MOUTH EVERY 6 HOURS NEEDED ORAL ACTIVE YAMILE,ROGELIO A D 2009 [facility] Immunizations Combined list of available immunizations from the Department of Defense and Veterans Affairs facilities. Immunization Series Date Given Administered By Site Reaction Lot Number CVX Code Drug Powerhouse Mechanic Helper Status Comments Source INFLUENZA, UNSPECIFIED FORMULATION 2018 88 complet ed [facility] INFLUENZA, INJECTABLE, QUADRIVALENT, PRESERVATIVE FREE 2016 150 complet ed [facility] INFLUENZA, UNSPECIFIED FORMULATION 2014 88 complet ed [facility] INFLUENZA, UNSPECIFIED FORMULATION 2013 88 complet ed [facility] INFLUENZA, UNSPECIFIED FORMULATION 2012 88 complet ed [facility] INFLUENZA, UNSPECIFIED FORMULATION 2011 88 complet ed [facility] INFLUENZA, UNSPECIFIED FORMULATION 2010 88 complet ed [facility] INFLUENZA, UNSPECIFIED FORMULATION 2009 88 complet ed [facility] INFLUENZA, UNSPECIFIED FORMULATION 2008 88 complet ed [facility] TDAP 2007 115 complet ed [facility] Vital Signs Combined list of inpatient and outpatient Vital Signs from Department of Defense and Veterans Affairs, ranging from 12 months to all on record, depending upon the facility. Vital Sign Value Date Comments Source SYSTOLIC BLOOD PRESSURE 150 04/01/2024 10:10:16 [facility] DIASTOLIC BLOOD PRESSURE 82 04/01/2024 10:10:16 [facility] PULSE OXIMETRY 95 04/01/2024 10:10:16 [facility] PAIN 7 04/01/2024 10:10:16 [facility] TEMPERATURE 98.2 04/01/2024 10:10:16 [facility] PULSE 58 04/01/2024 10:10:16 [facility] RESPIRATION 20 04/01/2024 10:10:16 [facility] SYSTOLIC BLOOD PRESSURE 164 09/25/2023 10:26:43 [facility] DIASTOLIC BLOOD PRESSURE 93 09/25/2023 10:26:43 [facility] PULSE OXIMETRY 98 09/25/2023 10:26:43 [facility] PAIN 8 09/25/2023 10:26:43 [facility] TEMPERATURE 97.3 09/25/2023 10:26:43 [facility] PULSE 66 09/25/2023 10:26:43 [facility] RESPIRATION 18 09/25/2023 10:26:43 [facility] Encounters Combined list of: 1) Encounters from [facility] facilities going back up to thelast 18 months. 2) Encounters from the Department of [facility] ([place], [place]) facilities going back up to 280 months. Location Location Details Encounter Type Encounter Number Reason For Visit Attending Provider ADM Date DC Date Status Disposition Source [facility] OFFICE O/P EST MOD 30-39 MIN [id number] Diagnos is: ICD-10- CM F33.1 Major depress carley disorde r, recurre nt, moderat e
ABICHANDAN I,BATOOL 12/31 [facility] Outpatient Encounter [id number] WILLIAMS MARKS A 03/31 [facility] VISUAL FIELD EXAMINATIO N(S) [id number] Diagnos is: ICD-10- CM H40.053 Ocular hyperte nsion, bilater al
TREIVN SEXTON I M 04/15 [facility] EYE EXAM ESTABLISH PATIENT [id number] Diagnos is: ICD-10- CM G35 Multipl e scleros is
JOSE ENRIQUE GARCIA 04/15 [facility] N [facility] OFFICE O/P EST MOD 30 MIN [id number] Diagnos is: ICD-10- CM F33.0 Major depress carley disorde r, recurre nt, mild
ABICHANDAN I,BATOOL [facility]27 [facility]P EST MOD 30 MIN [id number] Diagnos is: ICD-10- CM F33.0 Major depress carley disorde r, recurre nt, mild
KUMAR A 09/24 [facility] Outpatient Encounter [id number] 09/25 [facility] CMPTR OPHTH IMG OPTIC NERVE [id number] Diagnos is: ICD-10- CM G35 Multipl e scleros is
TREVIN SEXTON 10/13 [facility] OFFICE O/P EST MOD 30 MIN [id number] Diagnos is: ICD-10- CM H52.13 Myopia, bilater al
JOSE ENRIQUE GARCIA JANIE 10/13 [facility] OFFICE O/P EST MOD 30 MIN [id number] Diagnos is: ICD-10- CM F33.0 Major depress carley disorde r, recurre nt, mild
ABICHANDAN I,BATOOL 04/01 [facility] EXTENDED VISUAL FIELD XM [id number] Diagnos is: ICD-10- CM H40.223 1 Chronic angle-c losure glaucom a, bilater al, mild stage<b r/> TREVIN SEXTON I M 05/04 [facility] [place] 1 [id number] Diagnos is: ICD-10- CM H54.52A 1 Low vision left eye categor y 1, normal vision right eye<br/ > JOSE ENRIQUE GARCIAE 05/04 [facility] Social History Combined list of available smoking, tobacco, and other social history from Department of Defense and Veterans Affairs facilities. Social History Type Response Date Comment [facility] e Tobacco smoking status NHIS [place]-TOBACCO USER EVERY DAY 09/25/2023 [facility] of [facility] MIN OF [facility]UP 09/25/2023 [facility] History of tobacco use [place]-TO[place]ACCO FORMER USER 07/03/2022 [facility] History of tobacco use [place]-TO[place]ACCO FORMER USER 07/01/2021 [facility] History of tobacco use QUIT TOBACCO >7 Y EARS AGO 10/20/2016 [facility] History of tobacco use QUIT TOBACCO >7 Y EARS AGO 10/16/2015 [facility] History of tobacco use QUIT TOBACCO >7 Y EARS AGO 01/12/2015 [facility] History of tobacco use QUIT TOBACCO >7 Y EARS AGO 04/05/2014 [facility] History of tobacco use QUIT TOBACCO >7 Y EARS AGO 07/05/2013 [facility] History of tobacco use QUIT TOBACCO >7 Y EARS AGO 09/16/2012 [facility] History of tobacco use QUIT TOBACCO >12 MO and <7 YRS AGO 10/09/2011 [facility] History of tobacco use QUIT TOBACCO >12 MO and <7 YRS AGO 12/23/2010 [facility] History of tobacco use CURRENT TOBACCO USER 02/27/2010 [facility] History of tobacco use QUIT TOBACCO >12 MO and <7 YRS AGO 05/23/2009 [facility] Plan of Care List of future care activities from Department of [facility] Affairs facilities. Additional future care activities may be listed in the Assessment and Plan section. Date/Time Care Activity Care Activity Detail Facili ty 09/27/2024 AMBULATORY - PSYCHIATRY AMBULATORY - PSYC HIATRY [facility] 10/26/2024 AMBULATORY - SURGERY AMBULATORY - SURGERY [facility]
--- OUTSIDE RECORDS SUMMARY | 2024-06-14 15:42 | XMS_ITS | Encounter Summary ---
Author Name [facility] [place] [facility] [place] Address [address] [place] [address] Support Name Relationship Address Phone [place] SIMMS Next of Kin [address] [place], [place] [id number] LESLY DUNHAM Emergency Contact [address] [place] [address] Insurance Providers: All historical and current Section [...] PART B May 18, 2005 PART B [id number] 33A CHAN SIMMS PATIENT MEDICARE (WNR) MEDICARE (M) PART A Jun 18, 2001 PART A [id number] [phone] CHAN SIMMS PATIENT Selected Encounter This section includes the information on record at [place] for the Encounter. Date/Time Encounter Type Encounter Description Reason Provider Source May 04, 2024 01:30 PM COMPRE OPH EXAM EST PT 1/> OPHTHALMOLOGY ICD-10-CM H54.52A1 Low vision left eye category 1, normal vision right eye MARTHA GARCIA Ameena Encounter Template Text not used by [place] Assessments - Encounter Diagnoses This section includes the primary and secondary diagnoses documented for the Encounter. Date/Time Primary/Secondary Diagnosis Diagnosis Name Provider Source May 06, 2024 02:07 PM PRIMARY Low vision left eye category 1, normal vision right eye MARTHA GARCIA [facility] May 06, 2024 02:07 PM SECONDARY Age-related nuclear cataract, right eye MARTHA GARCIA [facility] May 06, 2024 02:07 PM SECONDARY Chronic angle-closure glaucoma, bilateral, mild stage AMRTHA GARCIA [facility] May 06, 2024 02:07 PM SECONDARY Ocular hypertension, bilateral MARTHA GARCIA [facility] Plan of Treatment: Future Appointments (+ 6 months) and Future Tests (+/- 45 days) The Plan of Treatment section includes future care activities for the patient from [facility] [place] [facility] This section includes future appointments and future orders which are active, pending or scheduled. Future Appointments This section includes appointments that were scheduled to occur 6 months from the date of the Encounter, up to a maximum of 20 appointments. The data comes from all [place] treatment facilities. Appointment Date/Time Appointment Type Appointme nt Facility Name September 27, 2024 10:30 AM AMBULATORY - PSYCHIATRY [facility] Oct 26, 2024 12:30 PM AMBULATORY - SURGERY [facility] Social History: Smoking Status (Most current) and Tobacco Use (All prior to encounter date) This section includes the most current, and the historical, smoking and tobacco- related health factors from the [facility] facility where the Encounter took place. Current Smoking Status This section includes the most current smoking, or tobacco-related health factor, from the [place] facility where the Encounter took place. Date/Time Current Smoking Status Lainey pizano May 23, 2009 10:35 AM QUIT TOBACCO >12 M O & <7 YRS AGO [facility] Encounter Notes: All associated encounter notes This section contains the clinical notes associated to the Encounter. Date/Time Encounter Note(s) Provider Source May 04, 2024 11:10 AM OPHTHALMOLOGY CONS ULT: LOCAL TITLE: OPHTHALMOLOGY CONSULT ST STANDARD TITLE: OPHTHALMOLOGY CONSULT DATE OF NOTE: MAY 04, 2024@11:10 ENTRY DATE: MAY 04, 2024@11:12 AUTHOR: MARTHA GARCIA EXP COSIGNER: URGENCY: STATUS: COMPLETED OPHTHALMOLOGY CLINIC HPI: 1) Progressive mulitple sclerosis c h/o IU/pars planitis OS 2) H/o MARIA R OS>>OD with h/o partial angle closure OS s/p LPI OS, H/o OHTN 3) NS OD, Pseudophakia OS 4) Blepharitis/dry eye OU Pt denies any new flare - ups . Reports mildly worse vision. His glasses were not filled at last visit. NO new neurologic symptoms - denies muscle spasms, extremity weakness, or new pain. gtts: Cosopt BID OU ====OCULAR EXAM==== MRx - 20/20 OD, balance OS -1.00 sphere OD BCVA OD: 20/30-1 without correction was 20/20- was 20/25-1 was 20/20 OS: 20/150+1 20/400 PH 20/200 was 20/200-2 was 20/200-1 was 20/80 ecc Pupils OD 5-> 3.5 no APD OS 4-> 3 +APD OS (also documented previously) EOMs: full OU VFs: full OU Ta 05/04/24 18 18 cos BID OU 10/14/23 15 15 cosopt BID OU 04/15/23 21 21 out of cos quite a while 07/24/20 14 16 Cosopt OU BID (used this AM) 03/22/19 12 13 Cosopt OU BID (used this AM) 10/19/18 22 22 Cosopt OU BID (Forgot this AM) 07/20/18 23 23 Cosopt OU BID 04/20/18 21 21 Cosopt ou BID (Forgot this AM) 12/01/17 08 09 Cosopt ou BID 07/29/17 09 10 Cospot ou BID 03/2017 09 09 Cosopt ou BID 02/2016 10 10 Cospot ou bid 04/24/15 14 16 cosopt OU BID 08/14/14 15 16 cosopt OU BID 08/16/13 16 16 cosopt OU BID 01/04/13 18 18 cosopt OU BID 06/11/12 14 14 no gtts 02/17/11 12 15 not dilated on cosopt ou bid 10:15 am 12/02/10 16 15 1030 post-dil. Cos ou bid 12/02/10 13 12 0850 tech, pre-dil. Cos ou bid 07/01/10 16 18 Cos ou BID 03/18/10 16 15 Cos ou bid 11/26/09 18 18 Cos ou bid SLEx: OD OS L/L 1+ mgD 1+mgD C&S Nasal and temporal injections Nasal pinguecula; Nasal and temporal injections K clear 1+ pigmented guttae ant stromal scar inferonasally AC D&Q, no cell/flare rare cell I R/R PI @ 11 o'clock, patent L 2+ NSC, milky PCIOL s/p YPC AV no cell, vit syn No cell, vit syn, no snowballs DFEx OD Nerve: CDR 0.5 with HNRR, trace PPA Macula: grossly flat Vessels: mildly attenuated Periphery: scattered pigment clumps in IT quadrant near arcade OS Clear view to posterior pole Nerve: CDR 0.6 with disproportionate pallor, 360 PPA extending towards macula Macula: grossly flat Vessels: Extensive venous sheathing, sup>inf Periphery: Extensive pigment clumping/atrophy, most prominent inferotemporally PREVIOUS STUDIES CCT PRIOR OD: 655 OS: 656 Gonio (07/30) OU: Grade II, 1+ pigment, no nv, no recession F 01/04/13: OD - reliable, WNL without glaucomatous defects OS - poor reliability 2/2 high FN and somewhat cloverleaf pattern but superior and inferior arcuate defects largely consistent with prior [facility] 12/02/10 OD: reliable, full OS: poorly reliable due to high false negative and cloverleaf pattern. Nonetheless, arcuates sup and inf that are greater temporally, stable from 08/2009 F 11/26/09 OD: reliable, wnl OS: [data not visible] F 09/03/09 OD: inferior changes of unclear significance, reliable OS: generalized depression, 20% FN, superior arcuate and inferior defects OCT 05/30: OD: Full, healthy NRR OS: Superior > Inf thinning OCT 3?18 OD full OS: Superior thinning, no inf thinning compatred to last OCT HVF 04/24/15 OD: reliable, full OS: reliable, SA>IA and paracentral (seen in prior test at [facility]) HVF (08/02) OD: reliable, full OS: reliable, SA>IA with paracentral, progression of IA Octopus (09/03): OD: Mild inferonasal peripheral constriction OS: [place] Kinetic VF (07/24/20): OD: possible inferior constriction OS: generalized constriction OCT Macula (07/24/20): No SRF/IRF OU OCT macula + RNFL 10-14-23: no progression OD, diffuse atrophy OS Kinetic Field OU No definite progression from prior testing HVF 24-2 04/2024 OD: stable, no progression, essentially full == A/P Pt is a 63 yo MALE with: 1) Progressive mulitple sclerosis c h/o IU/pars planitis OS: prev tx by Man/Symone -- Follows with Neurologist Balwinder Mae Q6mo (last seen~1mo ago), MRI yearly. -- Has been on Ampera, also started Ocrevus (ocrelizumab) 1 year ago -- No new neurologic sx, reports episode 1 mo ago of left eye pain now resolved -- Per pt, last MRI about a year ago, next one due March -- No evidence of pars planitis/intermediate uveitis today 2) H/o MARIA R OS>>OD with h/o partial angle closure OS s/p LPI OS ([facility]) -- H/o OHTN (Tm 26-28) -- HVF 24-2 at [facility] (2003) showed a full field OD (MD +2.38) and a moderately dense IA + shallow SA + superior paracentral depression OS (MD -13.86). -- Nerve OD appears healthy -- Nerve OS more pale than cupped (due to #1). -- Octopus 08/2018 looked relatively stable -- Kinetic today witih some inferior constriction OD, general constriction OS -- IOP improved back on cosopt BID OU - continue -- HVF 24-2 stable 3) age related NS OD: - visually significant but pt wishes to monitor at this time 4) Pseudophakia OS: - stable 5) Blepharitis/dry eye: - AT PRN - start FML 2x/week for breakthrough PRN pain 6) Myopia : - New script sent today (polycarbonates) RTC 6 months for IOP check /es/ MARTHA GARCIA MD Staff Physician, Ophthalmology Signed: 05/06/2024 14:07 MARTHA GARCIA [facility]
--- OUTSIDE RECORDS SUMMARY | 2024-06-14 15:42 | XMS_ITS ---
Author Name [facility] [place] [facility] [place] Organization [facility] [place] Address [address] [place] [address] Support Name Relationship Address Phone [place] SIMMS Next of Kin [address] [place], [place] [phone] LESLY DUNHAM Emergency Contact [address] [place], [place] [phone] Insurance Providers: All historical and current Section [...] PART B May 18, 2005 PART B [id number] 33A [phone] CHAN SIMMS PATIENT MEDICARE (WNR) MEDICARE (M) PART A Jun 18, 2001 PART A [id number] [id number] CHAN SIMMS PATIENT Selected Encounter This section includes the information on record at [place] for the Encounter. Date/Time Encounter Type Encounter Description Reason Provider Source Apr 01, 2024 10:30 AM OFFICE O/P EST MOD 30 MIN PSYCHOGERIATRIC - INDIVIDUAL ICD-10-CM F33.0 Major depressive disorder, recurrent, mild ABICHALexa CARRILLO Ameena Encounter Template Text not used by [place] Assessments - Encounter Diagnoses This section includes the primary and secondary diagnoses documented for the Encounter. Date/Time Primary/Secondary Diagnosis Diagnosis Name Provider Source Apr 01, 2024 10:46 AM PRIMARY Major depressive disorder, recurrent, mild LAKIA ZALDIVAR [facility] Plan of Treatment: Future Appointments (+ 6 months) and Future Tests (+/- 45 days) The Plan of Treatment section includes future care activities for the patient from [facility] [place] [facility]. This section includes future appointments and future orders which are active, pending or scheduled. Future Appointments This section includes appointments that were scheduled to occur 6 months from the date of the Encounter, up to a maximum of 20 appointments. The data comes from all [facility] facilities. Appointment Date/Time Appointment Type Appointme nt Facility Name May 04, 2024 01:30 PM AMBULATORY - SURGERY [facility] September 27, 2024 10:30 AM AMBULATORY - PSYCHIATRY [facility] Vital Signs: All taken on the encounter date This section contains inpatient and outpatient Vital Signs collected on the date of the Encounter. Date/Time Temperature Pulse Blood Pressure Respiratory Rate SP02 Pain Height Weight Body Mass Index Source Apr 01, 2024 10:10 AM 98.2 58 150/82 20 95 7 [facility] Social History: Smoking Status (Most current) and Tobacco Use (All prior to encounter date) This section includes the most current, and the historical, smoking and tobacco- related health factors from the [place] facility where the Encounter took place. Current Smoking Status This section includes the most current smoking, or tobacco-related health factor, from the [place] facility where the Encounter took place. Date/Time Current Smoking Status Comment Jerad ity September 25, 2023 10:30 AM ID-TOBACCO USER EVERY DAY [facility] Tobacco Use History This section includes a history of the smoking, or tobacco-related health factors, that were collected on or before the date of the Encounter. The data comes from the [place] facility where the Encounter took place. 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 [facility] September 25, 2023 10:30 AM VA-TOBACCO USE MED NO [facility] September 25, 2023 10:30 AM VA-TOBACCO USE WI 30 MIN OF WAKEUP [facility] September 25, 2023 10:30 AM VA-TOBACCO USER EVERY DAY [facility] Jul 03, 2022 11:00 AM VA-TOBACCO FORMER USER [facility] Jul 03, 2022 11:00 AM VA-TOBACCO QUIT 5 TO < 15 YRS [facility] Jul 01, 2021 02:00 PM VA-TOBACCO FORMER USER [facility] Jul 01, 2021 02:00 PM VA-TOBACCO QUIT 5 TO < 15 YRS [facility] Oct 20, 2016 12:41 PM QUIT TOBACCO >7 YEARS AGO [facility] October 16, 2015 11:38 AM QUIT TOBACCO >7 YEARS AGO [facility] Jan 12, 2015 02:42 PM QUIT TOBACCO >7 YEARS AGO [facility] Apr 05, 2014 01:12 PM QUIT TOBACCO >7 YEARS AGO [facility] Jul 05, 2013 01:05 PM QUIT TOBACCO >7 YEARS AGO [facility] September 16, 2012 09:17 AM QUIT TOBACCO >7 YEARS AGO [facility] October 09, 2011 09:48 AM QUIT TOBACCO >12 M O & <7 YRS AGO [facility] Dec 23, 2010 10:29 AM QUIT TOBACCO >12 M O & <7 YRS AGO [facility] Feb 27, 2010 09:55 AM CURRENT TOBACCO USER [facility] Encounter Notes: All associated encounter notes This section contains the clinical notes associated to the Encounter. Date/Time Encounter Note(s) Provider Source Apr 01, 2024 10:28 AM PSYCHIATRY NOTE: LOCAL TITLE: PSYCHIATRY [facility] STANDARD TITLE: PSYCHIATRY NOTE DATE OF NOTE: APR 01, 2024@10:28 ENTRY DATE: APR 01, 2024@10:28:57 AUTHOR: APRIL ZALDIVAR EXP COSIGNER: URGENCY: STATUS: COMPLETED [facility] - MEDICATION MANAGEMENT Name..................CHAN MAURICIO Age...................63 Sex...................MALE SSN...................[id number] Today's Date..........APR 01, 2024 Service Connection....Service Connected: Yes (100%) ALLERGIES: Patient has answered NKA OUTPATIENT MEDICATIONS: Active Outpatient Medications (excluding Supplies): Issue Date Status Last Fill Active Outpatient Medications Refills Expiration 1) DORZOLAMIDE 22.3/TIMOLOL6.8MG/ML OPH JAYLEN ACTIVE (S) Issu:10-14-23 Qty: 30 for 90 days Sig: INSTILL 1 Refills: 1 Last:06-04-24 DROP IN BOTH EYES TWICE A DAY FOR Expr:10-14-24 GLAUCOMA 2) DULOXETINE HCL 20MG EC CAP Qty: 180 for ACTIVE (S) Issu:09-25-23 90 days Sig: TAKE TWO CAPSULES BY Refills: 0 Last:06-06-24 MOUTH ONCE A DAY DO NOT ABRUPTLY Expr:09-25-24 DISCONTINUE MEDICATION. 3) HYDROXYZINE HCL 25MG TAB Qty: 270 for ACTIVE Issu:09-25-23 90 days Sig: TAKE ONE TABLET BY MOUTH Refills: 0 Last:01-11-24 THREE TIMES A DAY NEEDED FOR Expr:09-25-24 ANXIETY *MAY CAUSE DROWSINESS* 4) LAMOTRIGINE 200MG TAB Qty: 180 for 90 ACTIVE (S) Issu:09-25-23 days Sig: TAKE ONE TABLET BY MOUTH Refills: 0 Last:06-19-24 TWICE A DAY FOR MOOD STABILIZATION/ Expr:09-25-24 DEPRESSION Issue Date Status Last Fill Pending Outpatient Medications Refills Expiration 1) DULOXETINE HCL 20MG EC CAP Qty: 180 PENDING Sig: TAKE TWO CAPSULES BY MOUTH ONCE A Refills: 0 DAY DO NOT ABRUPTLY DISCONTINUE MEDICATION. 2) HYDROXYZINE HCL 25MG TAB Qty: 270 Sig: PENDING TAKE ONE TABLET BY MOUTH [...] TABLET BY MOUTH EVERY 6 HOURS NEEDED 15 Total Medications PROBLEM LIST: 1) Multiple Sclerosis 2) Hyperlipidemia 3) Essential Hypertension 4) Major Depressive Disorder, Single Episode, Severe, without Psychotic Features (I 5) Marijuana Abuse in Remission (ICD-9-CM 305.23) 6) Anxiety Disorder NOS 7) Optic Atrophy 8) Panic Disorder W/Agoraphobia 9) Mood Disorder Due To...[Indicate The General Medical Condition] VITAL SIGNS: Pulse.................58 (04/01/2024 10:10) Temperature...........98.2 F [36.8 C] (04/01/2024 10:10) Blood Pressure........150/82 (04/01/2024 10:10) Pain..................7 (04/01/2024 10:10) Weight................174 lb [78.93 kg] (04/20/2019 12:51) Patient [...] VALPROIC ACID...____ DIAGNOSIS BEING TREATED THIS VISIT: MAJOR DEPRESSION RECURRENT. ANY COMPLAINTS/PROBLEMS.......Yes CAME WITHHIS . HE IS FEELING NOT BAD HE IS SET IN HIS WAYS AND IS VERY MUCH STUCK IN HIS NEGATIVE ATTITUTE.HE DENIES DALE OR PSYCOSIS. NO NIKITA THOGUHTS. NO ACUTE RISK OF HARM TO SELF OR OTHERS AT THIS TIME.HAD GOOD SESSION BUT HE SMILES AND STAYS WHERE HE IS EMOTIOANLLY. MAKES JOKE OUT OF THINGS. PTSD SYMPTOMS: SMOKES...No DRINKS...No DRUGS....No MOOD: MOOD IS NOT BAD ACTIVITIES: COLLEGE BASEKET BAL, CHORES CONTACT: Shannon Zervas GOAL: STABILSI EMOOD ANY MEDICATION SIDE EFFECT....No APPETITE..................... .Good SLEEP........................ .Fair This provider engaged the in shared decision-making/treatment planning. MENTAL STATUS: MOOD/AFFECT.................N ormal MOOD IS NOT BAD .NEALTY DRESSED WELL GROOME WHITE MALE WITH COFFMAN AND MORE ANIMATED AND SMILLING OFTEN. DELUSIONS/HALLUCINATIONS....A bsent SUICIDAL/AGGRESSIVE.........A bsent ALERT & ORIENTED X3 WITH GOOD CONCENTRATION........Yes COMMENTS: None NELATY DRESED WELL GROOMED WHIT EMALE WITH COFFMAN AND SMILE ON HIS FACE.HE WALKS WITH A CANE. MEDICATION CHANGE.............No WILL STAY ON SAME MEDS SUPPORTIVE PSYCHOTHERAPY......Yes WILLDO VVC IN 6 MONTHS . HAD GOOD SESSION TIME SPENT 20 MINUTES. GAF: Last GAF: 50 on: Jul [...] April Zaldivar M.D. Staff Physician, Psychiatry [facility] Signed: 04/01/2024 10:47 BREANNE ZALDIVAR [facility] Apr 01, 2024 10:10 AM PSYCHIATRY OUTPATIENT NOTE: LOCAL TITLE: MENTAL HEALTH AGING RESOURCES TEAM [facility] STANDARD TITLE: PSYCHIATRY OUTPATIENT NOTE DATE OF NOTE: APR 01, 2024@10:10 ENTRY DATE: APR 01, 2024@10:11:06 AUTHOR: NICOLETTE CARRENO COSIGNER: URGENCY: STATUS: COMPLETED PTSD Screening - V: PC-PTSD-5 A PTSD screening test (PC-PTSD-5) was negative (score=0). IN THE PAST MONTH, have you ever had any experience that was so frightening, horrible or traumatic. For example: A serious accident or fire a physical or sexual assault or abuse An earthquake or flood A war Seeing someone be killed or seriously injured Having a loved one through homicide or suicide 1. Have you ever experienced this kind of event? NO 2. Had nightmares about the event(s) or thought about the event(s) when you did not want to? Response not required due to responses to other questions. 3. Tried hard not to think about the event(s) or went out of your way to avoid situations that reminded you of the event(s)? Response not required due to responses to other questions. 4. Been constantly on guard, watchful, or easily startled? Response not required due to responses to other questions. 5. [place] numb or detached from people, activities, or your surroundings? Response not required due to responses to other questions. 6. [place] guilty or unable to stop blaming yourself or others for the event(s) or any problems the event(s) may have caused? Response not required due to responses to other questions. /troy/ NICOLETTE CARRENO RN REGISTERED NURSE Signed: 04/01/2024 10:12 NICOLETTE CARRENO [facility]
--- OUTSIDE RECORDS SUMMARY | 2024-06-14 15:42 | XMS_ITS | Clinical Summary ---
Author Organization [facility] Address [address] [place] [address]. [place], [place] [id number] [place] [id number] Care Team Providers Care Mold Worker Name Role Phone Maximino Baez MD Primary Care Provider [phone] Allergies No known active allergies Medications fish oil 1000 MG Cap capsule Take 1,000 mg by mouth 2 (two) times daily. Active docusate sodium (STOOL SOFTENER) 100 MG capsule Take 100 mg by mouth 2 (two) times daily. Active venlafaxine XR 150 MG 24 hr capsule Take 300 mg by mouth daily. Active vitamin D3, cholecalciferol , 10 MCG (400 UNIT) tablet Take 400 Units by mouth daily. Active gabapentin 600 MG tablet Take 600 mg by mouth 3 (three) times daily. Active pravastatin 10 MG tablet Take 10 mg by mouth nightly at bedtime. Active HYDROcodone-javed taminophen 10-325 MG tablet Take 1 tablet by mouth every 6 (six) hours as needed for Pain. Active zolpidem 10 MG tablet Take 10 mg by mouth nightly as needed for Sleep. Active lamoTRIgine 200 MG tablet Take 200 mg by mouth daily. Active modafinil 100 MG tablet Take 100 mg by mouth daily. Active atenolol 25 MG tablet Take 25 mg by mouth daily. Active Dalfampridine (AMPYRA OR) Active citalopram 40 MG tablet Take 40 mg by mouth daily. Active raNITIdine HCl 300 MG Cap Take 1 capsule by mouth nightly at bedtime. at bedtime. Active OCRELIZUMAB IV Activ e Immunizations Name Administration Dates Next Due Td (TDVAX) 01/08/2021 Social History Tobacco Use Types Packs/Day Years Used Date Smoking Tobacco: Never Assessed Sex and Gender Information Value Date Recorded Sex Assigned at Not on file Legal Sex Male 10:27 PM [employer] Gender Identity Not on file Sexual Orientation Not on file Last Filed Vital Signs Vital Sign Reading Time Taken Comments Blood Pressure 146/81 01/08/2021 6:23 PM CDT Pulse 82 01/08/2021 6:23 PM CDT Temperature 36.5 ??C (97.7 ??F) 01/08/2021 6:23 PM CD T Respiratory Rate 18 01/08/2021 6:23 PM CDT Oxygen Saturation 97% 01/08/2021 6:23 PM CDT Inhaled Oxygen Concentration - - Weight 80.3 kg (177 lb) 01/08/2021 6:23 PM CDT Height 172.7 cm (5' 8 ) 01/08/2021 6:23 PM CDT Body Mass Index 26.91 01/08/2021 6:23 PM CDT Plan of Treatment Health Maintenance Due Date Last Done Comments Colorectal Cancer Screening Colonoscopy (10 Years) 1958 Hepatitis C 1976 Zoster Vaccines (1 of 2) 2008 DTaP, Tdap and Td Vaccines ( 1 - Tdap) 01/09/2021 01/08/2021 Annual Medicare Wellness Visit 2023 Pneumococcal Vaccine: 65+ Years (2 of 2 - PPSV23 or PCV20) 2023 05/09/2015 COVID-19 Vaccine (3 - 2023-2 5 season) 2024 10/04/2020, 09/13/2020 Influenza Adult (#1) 2024 03/08/2020 RSV Immunization or 60+ Years (1 - 1-dose 75+ series) 2033 Meningococcal B Vaccine Aged Out No l onger eligible based on patient's age to complete this topic Meningococcal Vaccine Aged Out No ainsley erasto eligible based on patient's age to complete this topic RSV Immunizations Under 20 Months Aged Out No longer eligible b ased on patient's age to complete this topic Insurance MEDICARE Care Teams Mold Worker Relationship Specialty Start Date End Date Maximino Baez MD [address] [place] [id number] PCP - General INTERNAL MEDICINE 01/08/21
--- OUTSIDE RECORDS SUMMARY | 2024-06-14 15:42 | XMS_ITS ---
Author Organization Unknown Address [address] [place] [phone] Phone Care Team Providers Care Assistant Passenger Locomotive Engineer Name Role Phone RIGOBERTO HERMAN Attending Unavailable NO PCP Primary Unavailable Immunization Immunization Date Status Additional Notes Code Code System Td (adult), 2 Lf tetanus toxoid, preservative free, adsorbed 01/08/2021 Completed 09 CVX Pneumococcal conjugate PCV 13 05/09/2015 Completed 133 CVX Influenza, split virus, trivalent, preservative 03/29/2012 Completed 141 CVX Influenza, split virus, quadrivalent, PF 02/08/2015 Completed 150 CVX Influenza, split virus, quadrivalent, PF 02/05/2018 Completed 150 CVX Influenza, split virus, quadrivalent, PF 03/04/2019 Completed 150 CVX Influenza, split virus, quadrivalent, PF 03/05/2021 Completed 150 CVX Influenza, split virus, quadrivalent, PF 01/29/2022 Completed 150 CVX Influenza, split virus, quadrivalent, PF 01/29/2023 Completed 150 CVX Influenza, recombinant, quadrivalent, PF 03/08/2020 Completed 185 CVX COVID-19, mRNA, LNP-S, PF, 3 0 mcg/0.3 mL dose 09/13/2020 Completed 208 CVX COVID-19, mRNA, LNP-S, PF, 3 0 mcg/0.3 mL dose 10/04/2020 Completed 208 CVX COVID-19, mRNA, LNP-S, PF, 3 0 mcg/0.3 mL dose 01/16/2021 Completed 208 CVX Pneumococcal conjugate PCV20 , polysaccharide [id number] conjugate, adjuvant, PF 08/12/2023 Completed 216 CVX Social History Type Status Start Date End Date Code Code Syst em Smoking History Unknown if ever smoked [id number] Sex Male Hospital Discharge Instructions Should you have any questions prior to discharge, please contact a member of your healthcare team. If you have left the hospital and have any questions, please contact your primary care physician. Reason For Referral No Data Found Procedures Procedure Name Date Status Code Code Syste m Simple repair of superficial wounds of scalp, neck, axillae, external josef 09/26/2023 completed 62268 CPT Plan of Treatment No Data Found Encounters Encounter Diagnosis Start Date Code Code Sys tem Laceration without foreign b kris of left index finger without damage to nail, initial encounter 09/26/2023 SNOMED-CT Personal Care Team Section Performer Name Performer Role Active Date Inactive Da te
--- OUTSIDE RECORDS SUMMARY | 2024-06-14 15:42 | XMS_ITS | Clinical Summary ---
Author Organization [facility] Address [address] [place] [address] Care Team Providers Care Principal Scientist Name Role Phone Maximino Baez MD Primary Care Provider [phone] Allergies No known active allergies Medications omega-3 [...] 05/15/2022 Assessment & Plan (03/26/2024 11:04 AM BRAND PLANNER): January 2021: Low-grade fever, headache, loss of taste and smell in nasal congestion without cough or significant shortness of breath. No monoclonal antibody treatment. Assessment & Plan (09/15/2023 6:58 AM CDT): January 2021: Low-grade fever, headache, loss of taste and smell in nasal congestion without cough or significant shortness of breath. No monoclonal antibody treatment. Assessment & Plan (05/15/2022 11:22 AM BRAND PLANNER): January 2021: Low-grade fever, headache, loss of taste and smell in nasal congestion without cough or significant shortness of breath. No monoclonal antibody treatment. Neurogenic bladder 10/24/2018 Assessment & Plan (03/26/2024 11:04 AM BRAND PLANNER): Prefers nonpharmacologic management Using pads Assessment & Plan (09/15/2023 6:57 AM CDT): Prefers nonpharmacologic management Using pads Assessment & Plan (2022 7:24 AM BRAND PLANNER): Prefers nonpharmacologic management Using pads Assessment & Plan (11/16/2021 5:03 PM CDT): Prefers nonpharmacologic management Using pads Assessment & Plan (05/15/2021 7:53 AM BRAND PLANNER): Prefers nonpharmacologic management Using pads Assessment & Plan (11/02/2020 2:50 PM CDT): Prefers nonpharmacologic management Using pads Assessment & Plan (05/04/2020 7:19 AM BRAND PLANNER): Prefers nonpharmacologic management Using pads Assessment & Plan (11/03/2019 7:31 AM CDT): Prefers nonpharmacologic management Using pads Assessment & Plan (04/22/2019 9:01 PM BRAND PLANNER): Prefers nonpharmacologic management Using pads Assessment & Plan (10/24/2018 1:50 PM CDT): Prefers nonpharmacologic management Using pads Paraparesis ([facility] 04/18/2018 Assessment & Plan (03/26/2024 11:03 AM BRAND PLANNER): Dalfampridine 10 mg twice a day Use cane regularly through on falls. Declined physical therapy Resume exercise: Yoga Assessment & Plan (09/15/2023 6:56 AM CDT): Dalfampridine 10 mg twice a day Resume exercise: Yoga Assessment & Plan (2022 7:22 AM BRAND PLANNER): Dalfampridine 10 mg twice a day Resume exercise: Yoga Assessment & Plan (11/16/2021 5:01 PM CDT): Dalfampridine 10 mg twice a day Resume exercise: Yoga Assessment & Plan (05/15/2021 7:46 AM BRAND PLANNER): Dalfampridine 10 mg twice a day Resume exercise: Yoga Assessment & Plan (11/02/2020 2:50 PM CDT): Ampyra 10 mg twice a day Resume exercise: Yoga Assessment & Plan (05/04/2020 7:18 AM BRAND PLANNER): Ampyra 10 mg twice a day Resume exercise: Yoga Assessment & Plan (11/03/2019 7:29 AM CDT): Ampyra 10 mg twice a day Resume exercise: Yoga Assessment & Plan (04/22/2019 9:00 PM BRAND PLANNER): Ampyra Baclofen Resume exercise: Yoga Assessment & Plan (10/24/2018 1:38 PM CDT): Ampyra Baclofen Exercise: Yoga Assessment & Plan (04/18/2018 8:47 AM BRAND PLANNER): Baclofen Exercise: Yoga Depression, controlled 08/03/2017 Assessment & Plan (03/26/2024 11:04 AM BRAND PLANNER): Duloxetine 40 mg daily Lamictal 200 mg daily Hydroxyzine Psychiatry follow-up at [facility] Assessment & Plan (09/15/2023 6:56 AM CDT): Duloxetine 40 mg daily Lamictal 200 mg daily Hydroxyzine Psychiatry follow-up at [facility] Assessment & Plan (2022 7:23 AM BRAND PLANNER): Venlafaxine XR 150 mg daily Citalopram 20 mg daily Lamictal 200 mg daily Psychiatry follow-up at [facility] Assessment & Plan (11/16/2021 5:03 PM CDT): Venlafaxine XR 150 mg daily Citalopram 20 mg daily Lamictal 200 mg daily Psychiatry follow-up at [facility] Assessment & Plan (05/15/2021 7:47 AM BRAND PLANNER): Venlafaxine XR 150 mg daily Citalopram 20 mg daily Lamictal [address] Oro at the [facility] retiring; starting with new psychiatrist. Assessment & Plan (11/02/2020 2:50 PM CDT): Venlafaxine XR 150 mg daily Citalopram 20 mg daily Lamictal 200 mg daily Psychiatry follow-up with Dr. Oro at the [facility] Assessment & Plan (05/04/2020 7:19 AM BRAND PLANNER): Venlafaxine XR 150 mg daily Citalopram 20 mg daily Lamictal 200 mg daily Psychiatry follow-up with Dr. Oro at the [facility] Assessment & Plan (11/03/2019 7:30 AM CDT): Effexor XR 150 mg daily Citalopram 20 mg daily Lamictal 200 mg daily Psychiatry follow-up Assessment & Plan (04/22/2019 9:01 PM BRAND PLANNER): Effexor XR 150 mg daily Citalopram 20 mg daily Lamictal 200 mg daily Alprazolam Psychiatry follow-up Assessment & Plan (08/03/2017 11:04 AM CDT): Psychological condition is unchanged. Continue current treatment regimen. Psychological condition will be reassessed with psychiatry at [facility] as recommended. Arthralgia of multiple joints 01/12/2017 Assessment & Plan (04/18/2018 8:52 AM BRAND PLANNER): Follow-up with PCP. MARIA R, RF and ESR normal Assessment & Plan (01/12/2017 9:07 PM CDT): Will check for rheumatologic cause F/u with PCP Primary insomnia 01/12/2017 Assessment & Plan (03/26/2024 11:04 AM BRAND PLANNER): Ambien 10 mg at night as needed Assessment & Plan (09/15/2023 6:58 AM CDT): Ambien 10 mg qhs prn Assessment & Plan (2022 7:24 AM BRAND PLANNER): Ambien 10 mg qhs prn Assessment & Plan (11/16/2021 5:03 PM CDT): Ambien 10 mg qhs prn Assessment & Plan (05/15/2021 7:54 AM BRAND PLANNER): Ambien 10 mg qhs prn Assessment & Plan (11/02/2020 2:51 PM CDT): Ambien 10 mg qhs prn Assessment & Plan (05/04/2020 7:19 AM BRAND PLANNER): Ambien 10 mg qhs prn Assessment & Plan (11/03/2019 7:31 AM CDT): Ambien 10 mg qhs prn Assessment & Plan (04/22/2019 9:02 PM BRAND PLANNER): Ambien 10 mg qhs prn Assessment & Plan (10/24/2018 1:52 PM CDT): Ambien 10 mg qhs prn Assessment & Plan (04/18/2018 8:51 AM BRAND PLANNER): Ambien 10 mg qhs prn Assessment & Plan (01/12/2017 9:30 PM CDT): Ambien qhs prn Multiple sclerosis 10/01/2013 Overview (08/20/2016): Multiple sclerosis Assessment & Plan (03/26/2024 11:03 AM BRAND PLANNER): First attack: Optic neuritis at age 20 [...] Try MiraLax for constipation. Recommended evaluation with certified flex endoscope reprocessor Dr. Balwinder Champagne. Assessment & Plan (2022 7:22 AM BRAND PLANNER): First attack: Optic neuritis at age 20 [...] Paxlovid advised if he develops recurrent COVID-19. Evusheld discussed, but will defer due [...] day Assessment & Plan (05/15/2021 7:48 AM BRAND PLANNER): First attack: Optic neuritis at age 20 [...] 2021. Assessment & Plan (05/04/2020 7:17 AM BRAND PLANNER): Next Ocrevus infusion July 18, 2020.The benefits [...] day Assessment & Plan (04/22/2019 9:00 PM BRAND PLANNER): Worsening disability on glatiramer acetate 40 mg [...] gabapentin Assessment & Plan (04/18/2018 8:54 AM BRAND PLANNER): On Copaxone 40 mg TIW. Since breakthrough disease twice on Copaxone, I recommended switch to Ocrevus again if repeat ALC improved (515 on 02/06/17). The benefits and risks of Ocrevus discussed with patient including serious infusion reactions, serious infections including PML/respiratory/herpetic infections and potential malignancy. He will consider again and discuss with . Ampyra, Provigil, gabapentin Assessment & Plan (08/03/2017 11:04 [...] follow-up Assessment & Plan (04/18/2018 8:49 AM BRAND PLANNER): Effexor XR 150 mg daily Citalopram 20 mg daily Lamictal 200 mg daily Alprazolam Psychiatry follow-up Assessment & Plan (01/12/2017 9:09 PM CDT): Effexor XR Citaloprm Alprazolam Recommended again discussing Cymbalta with psychiatrist instead of Effexor since could help dysesthesias in his feet. Vitamin D deficiency 01/12/2017 019 Assessment & Plan (04/18/2018 8:51 AM BRAND PLANNER): Vit D3 4000 IU daily Assessment & Plan (01/12/2017 9:30 PM CDT): Vit D3 4000 IU daily Encounters Date Type Department Care Team Description 03/25/2024 1:45 PM BRAND PLANNER Office Visit [facility] [address] [place] [phone] Balwinder Mae MD Multiple sclerosis (HCC) (Primary Dx); Paraparesis (CMS/HCC) (HCC); Depression, controlled; Neurogenic bladder; Primary insomnia; History of COVID-19 03/25/2024 9:30 AM BRAND PLANNER Infusion [facility] [address] [place] [phone] Multiple sclerosis (HCC) (Primary Dx) 03/22/2024 Orders Only [facility] [address] [place] [phone] Erik Patel PA 03/21/2024 Telephone [facility] Care [address] [place] [phone] Shar Archuleta Approval (GPF Approved 2024 Request ID: [id number]) from Last 3 Months Immunizations Name Administration Dates Next Due Influenza, Quadrivalent, Rec ombinant, Egg Free, Preservative Free, Intramuscular 03/08/2020 Influenza, Quadrivalent, Spl it, Preservative Free, Intramuscular 01/29/2023,01/29/2022,03/05/2021,03/04,02/05/2018,02/27/2017,02/08/2015 Influenza, Trivalent, IM (MDV) 03/29/2012 Influenza, Trivalent, Preser vative Free, Intramuscular 02/12/2024 Influenza, Unspecified 04/04/2019,2014,02/28/2014,04/04,03/31/2012,02/12/2011,04/02/2010 ,04/17/2009 Pneumococcal Conjugate PCV 13 05/09/2015 Pneumococcal Conjugate Pcv20 08/12/2023 Td, adsorbed 01/08/2021 Tdap 05/18/2007 Surgical History Surgery Date Site/Laterality Comments OTHER SURGICAL HISTORY fell from roof: right ankle fracture repair OTHER SURGICAL HISTORY right carpal tunnel: R carpal tunnel release OTHER SURGICAL HISTORY Left cataracts: L lens implant/cataract removal. Medical History Medical History Date Comments Hypercholesterolemia High choles terol Hx Other Medical pars planitis Depression depression Hx Other Medical panic attacks Hx Other Medical 1999 fell from roof Gastroesophageal reflux disease GERD Hx Other Medical Obstructive Sle ep Apnea Hx Other Medical right carpal tu nnel Hx Other Medical Left cataracts Hypertension Hypertension Family History Medical History Relation Name Comments Heart attack Father 2 Myocardial infa rction; Cause of : Myocardial infarction Other Mother 2 Alive and well; Relation Name Status Comments Father 1 Alive (Age 54) Father 2 Mother 1 Alive Mother 2 Social History Tobacco Use Types Packs/Day Years Used Date Smoking Tobacco: Former Vaping Smokeless Tobacco: Never Tobacco Cessation:Counseling Given: Not Answered Alcohol Use Standard Drinks/Week Comments Yes 0 (1 standard drink = 0.6 oz pur e alcohol) Sex and Gender Information Value Date Recorded Sex Assigned at Not on file Legal Sex Male 3:09 PM BRAND PLANNER Gender Identity Not on file Sexual Orientation Not on file Obstetrics History Last Filed Vital Signs Vital Sign Reading Time Taken Comments Blood Pressure 152/91 03/25/2024 1:23 PM BRAND PLANNER Pulse 62 03/25/2024 1:23 PM BRAND PLANNER Temperature 36.2 ??C (97.2 ??F) 03/25/2024 1:23 PM CS T Respiratory Rate 16 03/25/2024 12:45 PM BRAND PLANNER Oxygen Saturation 100% 03/25/2024 1:23 PM BRAND PLANNER Inhaled Oxygen Concentration - - Weight 81.6 kg (180 lb) 03/25/2024 1:23 PM BRAND PLANNER Height 172.7 cm (5' 8 ) 03/25/2024 1:23 PM BRAND PLANNER Body Mass Index 27.37 03/25/2024 1:23 PM BRAND PLANNER Plan of Treatment Health Maintenance Due Date Last Done Comments Colon Cancer Screening-Colonoscopy 1960 Depression Screening 1958 Fall Risk Assessment 1960 Hepatitis B Screening 1976 Zoster Vaccine (1 of 2) 2008 Abdominal Aortic Aneurysm (A AA) Screen 2023 Well Visit 65+ 2023 Covid-19 Vaccine (2023-2 5 season) 2024 01/16/2021, 10/04/2020, 09/13/2020 Prostate Cancer Screening-PSA 03/04/2025 03/04/2023, 02/11/2022 DTaP/Tdap/Td Vaccine (3 - Td or Tdap) 01/08/2031 01/08/2021, 05/18/2007 Hepatitis C Screening Completed 10/26/2018, 017 Pneumococcal vaccine 65+ Completed 08/12/2023, 04/18 Influenza Vaccine Completed 02/12/2024, , 01/29/2022, Additional history exists Procedures Procedure Name Priority Date/Time Associated Diagnosis [...] Immunoglobulins A/E/G/M, Serum (03/18/2024 10:32 AM CDT) Pathologist [facility] Immunoglobulin A 109 70 - 320 mg/dL [facility] Immunoglobulin E 8 <[place]=055 kU/L [facility] Immunoglobulin G 615 600 - 1,540 mg/dL [facility] Immunoglobulin M 16(L) 50 - 300 mg/dL [facility] Comment: Verified by repeat analysis. Serum 03/18/2024 10:3 2 AM CDT 03/18/2024 10:33 AM CDT us Balwinder Mae MD LAB BLOOD ORDERABLES Final Re sult [facility] [address] [place] [address] * (ABNORMAL) CBC with auto differential (03/18/2024 10:32 AM CDT) Pathologist [facility] WBC 5.1 3.8 - 10.8 Thousand/u L [...] BLOOD ORDERABLES Final Re sult [facility] [address] [place] [address] * (ABNORMAL) Comprehensive metabolic panel (03/18/2024 10:32 AM CDT) Pathologist [facility] Glucose 92 65 - 99 mg/dL [facility] Comment: ? Fasting reference interval BUN 16 7 - 25 mg/dL [facility] Creatinine 1.02 0.70 - 1.35 mg/dL [facility] eGFR 82 > OR = 60 mL/min/1.7 3m2 [facility] BUN/creat ratio SEE NOTE: 6 (calc) [facility] Comment: ?? Not [...] BLOOD ORDERABLES Final Re sult [facility] [address] [place] [address] * PSA screen (03/04/2023 11:37 AM CDT) PSA 1.26 < OR = 4.00 ng/mL [facility] Comment: The total PSA value from this assay system is standardized against the WHO standard. The test result will be approximately 20% lower when compared to the equimolar-standardized total PSA (Lulu Thom). Comparison of serial PSA results should be interpreted with this fact in mind. This test was performed using the Siemens chemiluminescent method. Values obtained from different assay methods cannot be used interchangeably. PSA levels, regardless of value, should not be interpreted as absolute evidence of the presence or absence of disease. 03/04/2023 11:3 7 AM CDT 03/04/2023 11:40 AM CDT us Maximino Baez MD LAB BLOOD ORDERABLES Final Resu lt [facility] [id number] [address] * Hepatitis panel, acute (10/26/2018 9:40 AM CDT) Hep A IgM NON-REACTIVE NON-REACT [facility] HepBsAg NON-REACTIVE NON-REACT [facility] [place] HBV Surface ag, confirm CANCELED [facility] Comment:Result canceled by t kristan ancillary. Hep B core IgM NON-REACTIVE NON-REACT [facility] [place] Hep C Ab NON-REACTIVE NON-REACT [facility] [place] SIGNAL TO CUT-OFF 0.00 <1.00 [facility] [place] Comment: HCV antibody was non-reactive. There is no laboratory evidence of HCV infection. In most cases, no further action is required. However, if recent HCV exposure is suspected, a test for HCV RNA (test code 00673) is suggested. For additional information please refer to http://education.[employer]/faq/BLA53a7 (This link is being provided for informational/ educational purposes only.) 10/26/2018 9:40 AM CDT 10/26/2018 9:56 AM CDT Narrative Resulting Agency Comment Performing Organization Information: ?Site ID: [id number] ?Name: Tamago Sudeep ?Address: [id number] [phone] ?Director: Uziel Pace D.O., MPH us Balwinder Mae MD LAB MICROBIOLOGY - GENERAL OR DERABLES Final Result Performing Organization Address City/[facility]/ZIP Co de Phone Number [facility]ARA Chirinos from Last 3 Months or Most Recently Relevant to Health Maintenance Insurance MEDICARE MEDICARE MEDICARE Care Teams Principal Scientist Relationship Specialty Start Date End Date Maximino Baez MD PCP - General 08/15/16
--- OUTSIDE RECORDS SUMMARY | 2024-06-14 15:42 | XMS_ITS | Encounter Summary ---
Author Organization [facility] Healthcare Address [address] [place] [address] Care Team Providers Care American Board Certified Orthotist Name Role Phone Maximino Baez MD Primary Care Provider [phone] Encounter Details Date Type Department Care Team (Late st Contact Info) Description 09/11/2023 Telephone [facility] [address] [facility] [address] [place] [phone] Shira Longo RN Social History Tobacco Use Types Packs/Day Years Used Date Smoking Tobacco: Former Vaping Smokeless Tobacco: Never Alcohol Use Standard Drinks/Week Comments Yes 0 (1 standard drink = 0.6 oz pur e alcohol) Sex and Gender Information Value Date Recorded Sex Assigned at Not on file 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
--- OUTSIDE RECORDS SUMMARY | 2024-06-14 15:43 | XMS_ITS ---
Author Name [facility] [place] Address [address] [place] [address] Support Name Relationship Address Phone [place] SIMMS Next of Kin [address] [place], [place] [id number] LESLY DUNHAM Emergency Contact [address] [place], [place] [phone] Insurance Providers: All historical and current Section [...] PART B May 18, 2005 PART B [id number] 33A CHAN SIMMS PATIENT MEDICARE (WNR) MEDICARE (M) PART A Jun 18, 2001 PART A [id number] 33A CHAN SIMMS PATIENT Selected Encounter This section includes the information on record at [place] for the Encounter. Date/Time Encounter Type Encounter Description Reason Provider Source October 14, 2023 01:30 PM OFFICE O/P EST MOD 30 MIN OPHTHALMOLOGY ICD-10-CM H52.13 Myopia, bilateral MARTHA GARCIA Ameena Encounter Template Text not used by [place] Assessments - Encounter Diagnoses This section includes the primary and secondary diagnoses documented for the Encounter. Date/Time Primary/Secondary Diagnosis Diagnosis Name Provider Source October 14, 2023 02:59 PM PRIMARY Myopia, bilateral MARTHA GARCIA [facility] October 14, 2023 02:59 PM SECONDARY Age-related nuclear cataract, right eye JOSELUISPAUMA [facility] October 14, 2023 02:59 PM SECONDARY Chronic angle-closure glaucoma, bilateral, mild stage LUIS GARCIAINE [facility] October 14, 2023 02:59 PM SECONDARY Low vision left eye category 1, normal vision right eye GARCIALUISPAUMA [facility] Plan of Treatment: Future Appointments (+ 6 months) and Future Tests (+/- 45 days) The Plan of Treatment section includes future care activities for the patient [facility] This section includes future appointments and future orders which are active, pending or scheduled. Future Appointments This section includes appointments that were scheduled to occur 6 months from the date of the Encounter, up to a maximum of 20 appointments. The data comes from all [place] treatment facilities. Appointment Date/Time Appointment Type Appointme nt Facility Name Apr 01, 2024 10:30 AM AMBULATORY - PSYCHIATRY [facility] Social History: Smoking Status (Most current) and Tobacco Use (All prior to encounter date) This section includes the most current, and the historical, smoking and tobacco- related health factors from the [place] facility where the Encounter took place. Current Smoking Status This section includes the most current smoking, or tobacco-related health factor, from the [place] facility where the Encounter took place. Date/Time Current Smoking Status Lainey pizano May 23, 2009 10:35 AM QUIT TOBACCO >12 M O & <7 YRS AGO [facility] Encounter Notes: All associated encounter notes This section contains the clinical notes associated to the Encounter. Date/Time Encounter Note(s) Provider Source October 14, 2023 02:41 PM OPHTHALMOLOGY CONS ULT: LOCAL TITLE: OPHTHALMOLOGY CONSULT [facility] STANDARD TITLE: OPHTHALMOLOGY CONSULT DATE OF NOTE: OCTOBER 14, 2023@14:41 ENTRY DATE: OCTOBER 14, 2023@14:41:51 AUTHOR: MARTHA GARCIA EXP COSIGNER: URGENCY: STATUS: [...] EOMs: full OU VFs: full OU Ta 10/14/23 15 15 cosopt BID OU 04/15/23 [...] inferior arcuate defects [facility]: reliable, full OS: poorly reliable [...] NRR OS: Superior > Inf thinning OCT ?18 OD full OS: Superior thinning, no inf thinning compatred to last OCT F 04/24/15 OD: reliable, full OS: reliable, SA>IA and paracentral (seen in prior test at [facility]) HVF (08/02) OD: reliable, full OS: reliable, SA>IA with paracentral, progression of IA [place] (09/03): OD: Mild inferonasal peripheral constriction OS: [place] Kinetic VF (07/24/20): OD: possible inferior constriction OS: generalized constriction OCT Macula (07/24/20): No SRF/IRF OU OCT macula + RNFL 10-14-23: no progression OD, diffuse atrophy OS Kinetic Field OU No definite progression from prior testing == A/P Pt is a 63 yo [...] partial angle closure OS s/p LPI OS (Man/[facility]) -- H/o OHTN (Tm 26-28) -- HVF 24-2 at [facility] (2003) showed a full field [...] IOP improved back on cosopt BID OU -- OCT without progression, check HVF 24-2 OD next 3) age related NS OD: - visually significant but pt wishes to monitor at this time 4) Pseudophakia OS: - stable 5) Blepharitis/dry eye: - AT PRN 6) Myopia : - New script sent today (polycarbonates) RTC 6 months for IOP check , CEIOL discussion, HVF 24-2 OD only Suicide Screen: C-SSRS Screening Glenn-Suicide Severity Rating Scale (C-SSRS Screener) 1. Over the past month, have you wished you were or wished you could go to sleep and not wake up? No 2. Over the past month, have you had any actual thoughts of killing yourself? No 3. Over the past month, have you been thinking about how you might do this? Response not required due to responses to other questions. 4. Over the past month, have you had these thoughts and had some intention of acting on them? Response not required due to responses to other questions. 5. Over the past month, have you started to work out or worked out the details of how to kill yourself? Response not required due to responses to other questions. 6. If yes, at any time in the past month did you intend to carry out this plan? Response not required due to responses to other questions. 7. In your lifetime, have you ever done anything, started to do anything, or prepared to do anything to end your life (for example, collected pills, obtained a gun, gave away valuables, went to the roof but didn't jump)? No 8. If YES, was this within the past 3 months? Response not required due to responses to other questions. /troy/ MARTHA GARCIA MD Staff Physician, Ophthalmology Signed: 10/14/2023 14:59 MARTHA GARCIA [facility]
== END 2024-06-14 15:15 | disposition home or self-care (01) ==
LOC: CHSIMG 15:15
PROVIDERS: PCP Internal Medicine; Visit Provider Internal Medicine
DX: I10 Essential (primary) hypertension (principal); E78.5 Hyperlipidemia, unspecified; R01.1 Cardiac murmur, unspecified; I08.0 Rheumatic disorders of both mitral and aortic valves
CPT/HCPCS: 93306